=== PATIENT | female | born 1965 | race Caucasian/White ===

== ENCOUNTER 2017-12-07 21:35 | Inpatient (IN) | payer BC, MEDICARE ==
[2017-12-08 00:09] VITALS: BMI 31.8
[2017-12-08] MEDS: HYDROcodone/APAP 5-325MG 1 EACH TAB PO PRN ×4 (01:09→21:21)
[2017-12-08] MEDS: DEXTROSE 5%-0.9% NACL 1,000 ML IV SCH ×2 (01:10→16:24)
[2017-12-08] MEDS: cefTRIAXone IN SWFI 1,000 MG/10 ML SYRINGE IVP SCH (05:41)
[2017-12-08] MEDS: DOXYCYCLINE 100 MG in SODIUM CHLORIDE 0.9% 100 ML IVPB SCH ×2 (08:01→21:21)
[2017-12-08] MEDS: FAMOTIDINE 20 MG TAB PO SCH ×2 (08:01→21:21)
[2017-12-08 08:40] LABS: Anion Gap 10 mmol/L; Blood Urea Nitrogen 8 mg/dL (7-17); Calcium 9.2 mg/dL (8.4-10.2); Carbon Dioxide 27 mmol/L (22-30); Chloride 93 mmol/L (98-107); Glucose 119 mg/dL (74-99); Potassium 4.5 mmol/L (3.5-5.1); Sodium 130 mmol/L (137-145)
[2017-12-08 08:50] LABS: HCT 38.4 % (34.0-46.0); HGB 13.5 gm/dL (11.4-16.0); MCH 32.7 pg (25.0-35.0); MCHC 35.1 g/dL (31.0-37.0); MCV 93.1 fL (80.0-100.0); Mean Platelet Volume 8.1; Platelet Count 116 k/uL (150-450); RBC 4.12 m/uL (3.80-5.40); RDW 12.9 % (11.5-15.5); WBC 10.1 k/uL (3.8-10.6)
[2017-12-08 10:00] LABS: Band Neutrophils % 1 %; Lymphocytes # (M) 2.42 k/uL (1.0-4.8); Monocytes # (M) 0.81 k/uL (0-1.0); Myelocytes % 2 %; Neutrophils % (M) 65 %; Nucleated Red Blood Cells 0 /100 WBC (0-0); Total Cells Counted 200
[2017-12-08] MEDS: HEPARIN SODIUM,PORCINE 5,000 UNIT/ML 1 ML VIAL SQ SCH ×2 (11:04→21:21)
[2017-12-08] MEDS: MORPHINE SULFATE 2 MG/ML SYRINGE IVP PRN ×3 (12:21→21:23)
--- NOTE | 2017-12-08 15:43 | P.CNPUL ---
History of Present Illness Consult date: 12/08/17 Reason for consult: lung mass History of present illness: This is a 52-year-old female patient, a previous smoker, who has been smoking smoking for almost 30 years, and quit smoking approximately 10 months ago. Following her smoking cessation, the patient experienced increased cough and congestion and she was also noting some worsening shortness of breath especially with exertion. At the same time the patient started having increased cough and chest discomfort and pain which was essentially muscular skeletal in nature across her left lower chest area. The pain was more so laterally with movement and coughing. She also is given some pain in her back radiating to her lower extremity on the right and she was getting quite uncomfortable. For all this reasons, she presented [facility] and as part of workup a CAT scan of the chest was done that showed an abnormal findings with the patient was found to have right paratracheal lymphadenopathy, bulky in addition to a right hilar mass and some infiltration of the right lung base with a masslike lesion in the peripheral right lung suggestive of underlying malignancy. The CAT scan of the head and neck came back within normal limits. The CAT scan of the lumbosacral spine showed some degenerative disc disease involving the L 5 S1 region yet there is no canal stenosis or compression. No evidence of any metastatic skeletal abnormalities involving the lumbosacral spine. Based on all this, the patient was referred and transferred to [facility] and of concern is her lung mass and possibility of underlying malignancy. No hemoptysis. The patient denies having any weight loss. She is obese and she has anatomic features to suggest obstructive sleep apnea the patient has a small chin and short neck with significant crowding of posterior pharynx. At this point in time, she is on a combination of Rocephin and Zithromax as an embolic antibiotic coverage. No history of any DVTs or pulmonary embolism. No cardiac history. No other medical problems and the patient does not have any primary care physician and she does not have routine health maintenance in follow-up. She is on oxygen. She does not use any inhalers or respiratory medications outpatient basis. She has history of bipolar disorder, hypertension and [id number] smoking history. She has history of IBS and acid reflux. Review of Systems Constitutional: Reports fatigue Eyes: denies blurred vision, denies bulging eye, denies decreased vision Ears: deny: decreased hearing, ear discharge, earache Cardiovascular: Reports dyspnea on exertion, Reports shortness of breath Respiratory: Reports dyspnea Genitourinary: Denies dysuria, Denies hematuria Menstruation: Reports as per HPI Musculoskeletal: Reports low back pain Musculoskeletal: absent: ankle pain, ankle stiffness, ankle swelling Integumentary: Denies pruritus, Denies rash Neurological: Reports migraines Psychiatric: Denies anxiety, Denies depression Endocrine: Reports as per HPI Hematologic/Lymphatic: Reports as per HPI Allergic/Immunologic: Reports as per HPI Past Medical History Past Medical History: No Reported History Additional Past Medical History / Comment(s): Obesity, bipolar disorder, hypertension, acid reflux, smoker, IBS and previous history of pneumonia History of Any Multi-Drug Resistant Organisms: None Reported Past Surgical History: Hysterectomy, Orthopedic Surgery Additional Past Surgical History / Comment(s): R knee ACL repair, cyst removal under tongue, hemorroid surgery Past Anesthesia/Blood Transfusion Reactions: No Reported Reaction Past Psychological History: Anxiety, Bipolar, Depression Smoking Status: Former smoker Past Alcohol Use History: None Reported Additional Past Alcohol Use History / Comment(s): pt states history of alcohol dependence. Occassionally drinks currently Past Drug Use History: None Reported - Past Family History Mother Family Medical History: CVA/TIA, Hypertension, Rheumatoid Arthritis ([place]) Father Family Medical History: Hypertension, Myocardial Infarction ([place]), Rheumatoid Arthritis ([place]) Medications and Allergies Home Medications Medication Instructions Recorded Confirmed Type Melatonin 10 mg PO HS 12/08/17 12/08/17 History Allergies Allergy/AdvReac Type Severity Reaction Status Date / Time No Known Allergies Allergy Verified 12/08/17 09:44 Physical Exam Vitals: Vital Signs Temp Pulse Resp BP Pulse Ox 12/08/17 15:00 98.2 F 94 22 195/91 95 12/08/17 06:09 98.0 F 74 16 176/81 96 12/07/17 23:59 98.0 F 72 18 168/92 98 Intake and Output 12/08/17 12/08/17 12/08/17 06:59 14:59 22:59 Intake Total 200 450 Balance 200 450 Intake: Intake, IV Titration 200 450 Amount Dextrose 5%-0.9% NaCl 1, 200 350 000 ml @ 50 mls/hr IV . Q20H [facility] Rx#:[id number] Doxycycline 100 mg In 100 Sodium Chloride 0.9% 100 ml @ 66.67 mls/hr IVPB Q12HR [facility] Rx#:[id number] Other: Voiding Method Toilet Toilet Toilet Weight 78.925 kg Obese, comfortable likely distress. Head exam was generally normal. There was no scleral icterus or corneal arcus. Mucous membranes were moist. Neck was supple and without jugular venous distension, thyromegaly, or carotid bruits. Carotids were easily palpable bilaterally. There was no adenopathy. The patient has micrognathia and significant crowding of the posterior oropharynx with a Mallampati class IV Lung sounds are diminished bilaterally along with some scattered expiratory wheezes heard bilaterally. No crackles. Cardiac exam revealed the PMI to be normally situated and sized. The rhythm was regular and no extrasystoles were noted during several minutes of auscultation. The first and second heart sounds were normal and physiologic splitting of the second heart sound was noted. There were no murmurs, rubs, clicks, or gallops. Abdomen is obese soft nontender all his cannot be accurately palpated. No direct tenderness amount a guarding. Examination of the extremities revealed easily palpable radial, femoral and pedal pulses. There was no cyanosis, clubbing or edema. Examination of the skin revealed no evidence of significant rashes, suspicious appearing nevi or other concerning lesions. Neurologically the patient is awake and alert and the patient has no focal neurological deficit. Results - Laboratory Findings CBC and BMP: 12/08/17 07:14 18 07:14 Abnormal lab findings: Abnormal Labs 12/08/1718 07:14 07:14 Plt Count 116 L Myelocytes # (Manual) 0.20 H Sodium 130 L Chloride 93 L Glucose 119 H - Diagnostic Findings CT scan - chest: image reviewed Assessment and Plan Plan: Assessment 1 right hilar mass with paratracheal lymphadenopathy, highly suggestive underlying primary bronchogenic carcinoma, currently under investigation the patient will need further bronchoscopy and airway inspection and biopsies. 2 obesity 3 [id number] smoking history 4 shortness of breath, exertional likely underlying COPD and addition 5 hypertension 6 IBS 7 chronic back pain with gentle disc disease Plan Patient will need a bronchoscopy. I explained the procedure to the patient length. This procedure will be done and operating room. We'll start with conscious sedation and will consider the vagina anesthesia underwent intubation if the patient hyperventilates and/or develops any apneic episodes while under conscious sedation. The procedure will involve airway inspection, transbronchial biopsies and possibly transbronchial needle aspirate of the right paratracheal lymph node. We'll continue to follow. High suspicion for malignancy. No cough or pain control. Heparin subcu for DVT prophylaxis.
[2017-12-08] MEDS ORDERED: METOPROLOL TARTRATE 25 MG TAB PO STA (15:53)
[2017-12-08] MEDS: IBUPROFEN 600 MG TAB PO SCH ×2 (16:23→22:46)
[2017-12-08] MEDS ORDERED: CYCLOBENZAPRINE 5 MG TAB PO PRN (19:36)
[2017-12-08] MEDS: hydrALAZINE HCL 25 MG TAB PO PRN (21:23)
[2017-12-08] MEDS: CYCLOBENZAPRINE 10 MG TAB PO PRN (21:23)
--- NOTE | 2017-12-08 22:30 | P.HPIM ---
History of Present Illness H&P Date: 12/08/17 Chief Complaint: Shortness of breath Patient is a 52-year-old female with significant past medical history for smoking for 30 years initially presented to [facility] with increased shortness of breath cough and congestion. Patient is also having chest pain and back pain. Patient does have history of chronic back pain and takes Motrin at home. Patient back and has been getting worse with coughing. Sometimes the pain radiates down the legs. Patient says that she quit smoking about 10 months ago. Patient had workup including CT chest, CT lumbar-sacral spine and CT head was done. CT of the head showed no acute process CT chest showed 5.9 cm right hilar mass and 2.8 cm paratracheal lymph node enlargement. CT of the lumbosacral spine showed wide based disc prolapse at L5-S1 and L4-L5 with Stenosis. No Chronic Compression Was Noted. Patient Was Subsequently Transferred to [facility] for further by pulmonary and possible biopsy. Patient is also being treated for pneumonia likely post obstructive with ceftriaxone and doxycycline. Otherwise patient does not have any other medical problems and is not on follow- up with primary care physician and regular basis. Review of Systems Constitutional: Patient denies any fever or chills . No generalized weakness or weight loss. Abdomen: Patient denied nausea vomiting and diarrhea and abdominal pain. Cardiovascular: Patient denies any chest pain or short of breath no palpitations. Respiratory: Patient does have cough congestion and shortness of breath Neurologic: Patient denied any numbness or tingling headache. Musculoskeletal: Patient does have lower back pain. Otherwise no joint swelling or deformity Skin: Negative Psychiatric: Negative Endocrine: No heat or cold intolerance. No recent weight gain. Genitourinary: No dysuria or hematuria. All other 14 point ROS negative except the above Past Medical History Past Medical History: No Reported History History of Any Multi-Drug Resistant Organisms: None Reported Past Surgical History: Hysterectomy, Orthopedic Surgery Additional Past Surgical History / Comment(s): R knee ACL repair, cyst removal under tongue, hemorroid surgery Past Anesthesia/Blood Transfusion Reactions: No Reported Reaction Past Psychological History: Anxiety, Bipolar, Depression Smoking Status: Former smoker Past Alcohol Use History: None Reported Additional Past Alcohol Use History / Comment(s): pt states history of alcohol dependence. Occassionally drinks currently Past Drug Use History: None Reported - Past Family History Mother Family Medical History: CVA/TIA, Hypertension, Rheumatoid Arthritis ([place]) Father Family Medical History: Hypertension, Myocardial Infarction ([place]), Rheumatoid Arthritis ([place]) Medications and Allergies Home Medications Medication Instructions Recorded Confirmed Type Melatonin 10 mg PO HS 12/08/17 12/08/17 History Allergies Allergy/AdvReac Type Severity Reaction Status Date / Time No Known Allergies Allergy Verified 12/08/17 09:44 Physical Exam Vitals: Vital Signs Temp Pulse Resp BP Pulse Ox 12/08/17 06:09 98.0 F 74 16 176/81 96 12/07/17 23:59 98.0 F 72 18 168/92 98 Intake and Output 12/07/17 12/08/17 12/08/17 22:59 06:59 14:59 Intake Total 200 Balance 200 Intake: Intake, IV Titration 200 Amount Dextrose 5%-0.9% NaCl 1, 200 000 ml @ 50 mls/hr IV . Q20H [facility] Rx#:[id number] Other: Voiding Method Toilet Toilet Weight 78.925 kg PHYSICAL EXAMINATION: Patient is lying in the bed comfortably, no acute distress, awake alert and oriented.. HEENT: Normocephalic. Neck is supple. Pupils reactive. Nostrils clear. Oral cavity is moist. Ears reveal no drainage. Neck reveals no JVD, carotid bruits, or thyromegaly. CHEST EXAMINATION: Trachea is central. Symmetrical expansion. Right basilar crackles and diminished breath sounds. No wheezing. All other Lung peguero clear to auscultation and percussion. CARDIAC: Normal S1, S2 with no gallops. No murmurs ABDOMEN: Soft. Bowel sounds normal. No organomegaly. No abdominal bruits. Extremities: reveal no edema. No clubbing or cyanosis Neurologically awake, alert, oriented x3 with well-coordinated movements. No focal deficits noted Skin: No rash or skin lesions. Psychiatric: Coperative. Nonsuicidal Musculoskeletal: No joint swelling or deformity. Normal range of motion. Results CBC & Chem 7: 12/08/17 07:14 12/08/17 07:14 Labs: Abnormal Lab Results - Last 24 Hours (Table) 12/08/17 12/08/17 Range/Units 07:14 07:14 Plt Count 116 L (150-450) k/uL Myelocytes # (Manual) 0.20 H (0) k/uL Sodium 130 L (137-145) mmol/L Chloride 93 L (98-107) mmol/L Glucose 119 H (74-99) mg/dL Thrombosis Risk Factor Assmnt - DVT/VTE Prophylaxis DVT/VTE Prophylaxis: Pharmacologic Prophylaxis ordered - Choose All That Apply Any of the Below Risk Factors Present?: Yes Each Factor Represents 1 point: Age 41-60 years, Obesity (BMI >25), Serious lung disease incl. pneumonia (< 1month) Other Risk Factors: No Other congenital or acquired thrombophilia - If yes, enter type in comment: No Thrombosis Risk Factor Assessment Total Risk Factor Score: 3 Thrombosis Risk Factor Assessment Level: Moderate Risk Assessment and Plan Assessment: Right perihilar mass with paratracheal lymphadenopathy. 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 Pulmonary is planning for bronchoscopy tomorrow. Possible pneumonia. Empiric antibiotics in the form of ceftriaxone and doxycycline Hyponatremia 30 pack years of smoking Obesity with BMI 31.8 History of bipolar disorder Hypertension. Currently not taking any medications IBS Chronic back pain with degenerative disc disease at L5-S1 and L4-L5 with broad based disc bulging DVT prophylaxis Plan: Patient will be continued on antibiotics and breathing treatments. Continue the pain management with morphine and Motrin when necessary. Pulmonary is planning for bronchoscopy tomorrow. Continue the pain management and further recommendations based on the clinical course. Prognosis is guarded. Time with Patient: Greater than 30
[2017-12-08] MEDS: METOPROLOL TARTRATE 25 MG TAB PO SCH (22:47)
[2017-12-08] MEDS ORDERED: MORPHINE SULFATE 2 MG/ML SYRINGE IVP STA (23:15)
[2017-12-08] MEDS: amLODIPine 10 MG TAB PO SCH (23:30)
[2017-12-09] MEDS: LORazepam 1 MG TAB PO PRN (01:20)
[2017-12-09] MEDS: MELATONIN 3 MG TABLET PO PRN (03:49)
[2017-12-09] MEDS: cefTRIAXone IN SWFI 1,000 MG/10 ML SYRINGE IVP SCH (06:07)
[2017-12-09 07:34] LABS: INR 1.1 (<1.2); Prothrombin Time 10.7 sec (9.0-12.0)
[2017-12-09] MEDS: DOXYCYCLINE 100 MG in SODIUM CHLORIDE 0.9% 100 ML IVPB SCH ×2 (07:55→21:20)
[2017-12-09] MEDS: FAMOTIDINE 20 MG TAB PO SCH ×2 (07:55→21:20)
[2017-12-09] MEDS: amLODIPine 10 MG TAB PO SCH (07:55)
[2017-12-09] MEDS: METOPROLOL TARTRATE 25 MG TAB PO SCH ×2 (07:55→21:20)
[2017-12-09] MEDS: IBUPROFEN 600 MG TAB PO SCH ×3 (07:56→21:22)
[2017-12-09] MEDS: HEPARIN SODIUM,PORCINE 5,000 UNIT/ML 1 ML VIAL SQ SCH ×2 (07:56→21:20)
[2017-12-09] MEDS: DEXTROSE 5%-0.9% NACL 1,000 ML IV SCH ×2 (07:57→18:20)
[2017-12-09] MEDS: HYDROcodone/APAP 5-325MG 1 EACH TAB PO PRN ×2 (08:00→18:19)
[2017-12-09] MEDS: MORPHINE SULFATE 2 MG/ML SYRINGE IVP PRN (09:03)
[2017-12-09] MEDS ORDERED: IV FLUID CONTINUATION 800 ML IV ONE (11:12)
[2017-12-09] MEDS ORDERED: ONDANSETRON 4 MG/2 ML VIAL ONE (11:42)
[2017-12-09] MEDS ORDERED: DEXAMETHASONE SOD PHOSPHATE 10 MG/ML 1 ML VIAL IV ONE (11:45)
[2017-12-09] MEDS ORDERED: ONDANSETRON 4 MG/2 ML VIAL IVP ONE (11:45)
[2017-12-09] MEDS ORDERED: LACTATED RINGERS 1,000 ML IV ONE (12:47)
[2017-12-09] MEDS ORDERED: fentaNYL (PF) 50 MCG/ML 2 ML AMP ONE ×2 (12:50)
[2017-12-09] MEDS ORDERED: SUCCINYLCHOLINE CHLORIDE 100 MG/5 ML SYR IV ONE ×2 (12:50)
[2017-12-09] MEDS ORDERED: MIDAZOLAM 2 MG/2 ML VIAL ONE ×2 (12:50)
[2017-12-09] MEDS ORDERED: LIDOCAINE 1% INJ 10MG/ML (20 ML MDV) ONE ×2 (12:50)
[2017-12-09] MEDS ORDERED: KETAMINE 10 MG/ML 20 ML VIAL ONE ×2 (12:50)
[2017-12-09] MEDS ORDERED: PROPOFOL 10 MG/ML 20 ML VIAL IV ONE ×2 (12:50)
[2017-12-09] MEDS ORDERED: LIDOCAINE 2% INJ 20 MG/ML INTRATRACH ONE (13:08)
--- NOTE | 2017-12-09 13:54 | P.PN ---
Subjective Progress Note Date: 12/09/17 On today's evaluation of 12/09/2017, the patient was seen in the preoperative room. The plan is to proceed with bronchoscopy and obtain biopsies of the findings and possibly perform transbronchial needle aspirate of the right paratracheal lymph node. This will be decided at a time of the bronchoscopy. The patient understands the procedure. The procedure will be done in the operating room. We'll start is conscious sedation and if unable to complete due to pulmonary insufficiency/obstructive sleep apnea, would proceed with intubation and performing the patient under general anesthesia. The patient is agreeable to that approach. No hemoptysis. No chest pain. No shortness of breath. No altered mentation. No other complaints otherwise for now. Objective - Vital Signs Vital signs: Vital Signs Temp 98.0 F 12/09/17 11:18 Pulse 66 12/09/17 11:18 Resp 16 12/09/17 11:18 BP 174/82 12/09/17 11:18 Pulse Ox 94 L 12/09/17 11:18 Intake & Output 12/08/17 12/09/17 12/09/17 18:59 06:59 18:59 Intake Total 450 650 150 Balance 450 650 150 Weight 78.925 kg Intake: IV 150 Intake, IV Titration 450 650 Amount Dextrose 5%-0.9% NaCl 1, 350 550 000 ml @ 50 mls/hr IV . Q20H [facility] Rx#:[id number] Doxycycline 100 mg In 100 100 Sodium Chloride 0.9% 100 ml @ 66.67 mls/hr IVPB Q12HR [facility] Rx#:[id number] Other: Voiding Method Toilet Toilet Toilet # Voids 1 - Exam Obese, comfortable likely distress. Head exam was generally normal. There was no scleral icterus or corneal arcus. Mucous membranes were moist. Neck was supple and without jugular venous distension, thyromegaly, or carotid bruits. Carotids were easily palpable bilaterally. There was no adenopathy. The patient has micrognathia and significant crowding of the posterior oropharynx with a Mallampati class IV Lung sounds are diminished bilaterally along with some scattered expiratory wheezes heard bilaterally. No crackles. Cardiac exam revealed the PMI to be normally situated and sized. The rhythm was regular and no extrasystoles were noted during several minutes of auscultation. The first and second heart sounds were normal and physiologic splitting of the second heart sound was noted. There were no murmurs, rubs, clicks, or gallops. Abdomen is obese soft nontender all his cannot be accurately palpated. No direct tenderness amount a guarding. Examination of the extremities revealed easily palpable radial, femoral and pedal pulses. There was no cyanosis, clubbing or edema. Examination of the skin revealed no evidence of significant rashes, suspicious appearing nevi or other concerning lesions. Neurologically the patient is awake and alert and the patient has no focal neurological deficit. - Labs CBC & Chem 7: 12/08/17 07:14 12/08/17 07:14 Assessment and Plan Plan: Assessment 1 right hilar mass with paratracheal lymphadenopathy, highly suggestive underlying primary bronchogenic carcinoma, currently under investigation the patient will need further bronchoscopy and airway inspection and biopsies. 2 obesity 3 [id number] smoking history 4 shortness of breath, exertional likely underlying COPD and addition 5 hypertension 6 IBS 7 chronic back pain with gentle disc disease Plan Patient will need a bronchoscopy. I explained the procedure to the patient length. Strongly suspected malignancy/cancer.
--- NOTE | 2017-12-09 14:04 | P.PCN ---
Date of Procedure: 12/09/17 Preoperative Diagnosis: Right lung mass Postoperative Diagnosis: 1 endobronchial tumor within the right middle lobe bronchus causing 50% narrowing of the distal right middle lobe bronchus 2 endobronchial tumor occupying the sputum segment of the right lower lobe causing 50% narrowing 3 mass effect at the level of the secondary trachea, right upper lobe with some endobronchial irregularities. Procedure(s) Performed: Flexible bronchoscopy, endobronchial biopsy of the right middle lobe and the right lower lobe, endobronchial fine-needle aspirate of the right middle lobe and the right lower lobe, bronchioloalveolar lavage of the right middle lobe, endobronchial brushings of the right middle lobe. Anesthesia: ROZ ERVIN Surgeon: Kylie Lundy Director Global Sales #1: Ana Vitale Estimated Blood Loss (ml): 5 Pathology: other Condition: stable Disposition: floor Indications for Procedure: Right hilar mass Description of Procedure: This procedure was done in the operating room. The patient was brought in. The patient was aware of the details of the procedure. Timeout was obtained. Following that the patient was given conscious sedation however it immediately became clear that the patient was having extensive prolonged apneic episodes where she was desaturating her pulse ox was dropping the low 80s. At that point we decided to proceed with intubation and mechanical ventilation the procedure was completed under general anesthesia. The patient was intubated by FIRE COORDINATOR using the glydoscope and the patient was intubated by #8 orotracheal tube. While the patient being oxygenated and adequately ventilated, and adapter was attached orotracheal tube and following that the bronchoscope was advanced through the orotracheal tube and an airway inspection was completed. She was seen around 3 cm above the jessica. The distal trachea and the main jessica was sharp and in the midline. Right mainstem bronchus was within normal limits. At this level of the secondary jessica between the bronchus intermedius and the right upper lobe bronchus, there was some swelling, irregularities mucosally and probably some early mass effect. The various segments of the right upper lobe was easily visualized. The bronchoscope was then moved to the bronchus intermedius and then to the right middle lobe bronchus. There was endobronchial abnormalities within the right middle lobe bronchus and along with endobronchial involvement there was a mass effect which was reducing the caliber of the right middle lobe bronchus by around 50% especially from its lateral wall. The medial and lateral segments were visualized however the lateral segment was quite extensively narrowed. Bronchoscope was then moved to the right lower lobe and this appears segment was involved by endobronchial tumor causing 50% narrowing of the involved segment. The medial basilar segment and anterior and the lateral and the posterior segments were all patent and within normal limits. The bronchoscope was then moved to the left side and examination of the left side including left upper lobe bronchus, lingular segment, left lower lobe bronchus and all of these airways were patent and within normal limits At this point the rhonchus, was then the moved to the right side and using a 19- gauge 1 needle, transbronchial needle aspirate of the endobronchial irregularities and abnormalities noted right middle lobe and the right lower lobe was done. 2 passes were obtained and the right middle lobe and 2 passes from this. Segment of the right lower lobe. Following that, I performed endobronchial biopsies of the right middle lobe and's appears segment of the right lower lobe. Endobronchial brushings of the right middle lobe was done. Bronchioloalveolar lavage of the right middle lobe was done with a total of 80 mL of fluid was aspirated and around 25 mL was suctioned back. Adequate samples were obtained and the patient rated the procedure well. Bronchoscope was removed and the patient was extubated and transferred to recovery in stable condition. A chest x-ray will be done following the completion of the procedure.
--- NOTE | 2017-12-09 14:39 | XR ---
EXAMINATION TYPE: XR chest 1V DATE OF EXAM: 12/09/2017 COMPARISON: NONE HISTORY: Post bronchoscopy. TECHNIQUE: Single frontal view of the chest is obtained. FINDINGS: Right-sided visceral pleural line is seen with 8mm thickness with opacity peripherally and additional right basilar density extending to the minor fissure likely related to pleural effusion. Mild interstitial pulmonary vascular congestion, most pronounced centrally is seen. Patient's chin ob scures the lung apices. No sizable left pleural effusion. Cardiac silhouette is partially obscured bu t appears enlarged. Osseous structures are intact. IMPRESSION: Moderate right pleural effusion seen extending to the right lung apex with right basilar consolidation also likely related to pleural fluid and atelectasis. Continued follow-up is recommend ed to ensure no hemopneumothorax status post bronchoscopy.
[2017-12-09] MEDS: IPRATROPIUM-ALBUTEROL 3 ML NEB INHALATION PRN (22:49)
--- NOTE | 2017-12-09 22:56 | P.PN ---
Subjective Progress Note Date: 12/09/17 Principal diagnosis: Lung mass and pneumonia Patient is a 52-year-old female with significant past medical history for smoking for 30 years initially presented to [facility] with increased shortness of breath cough and congestion. Patient is also having chest pain and back pain. Patient does have history of chronic back pain and takes Motrin at home. Patient back and has been getting worse with coughing. Sometimes the pain radiates down the legs. Patient says that she quit smoking about 10 months ago. Patient had workup including CT chest, CT lumbar-sacral spine and CT head was done. CT of the head showed no acute process CT chest showed 5.9 cm right hilar mass and 2.8 cm paratracheal lymph node enlargement. CT of the lumbosacral spine showed wide based disc prolapse at L5-S1 and L4-L5 with Stenosis. No Chronic Compression Was Noted. Patient Was Subsequently Transferred to [facility] for further by pulmonary and possible biopsy. Patient is also being treated for pneumonia likely post obstructive with ceftriaxone and doxycycline. Otherwise patient does not have any other medical problems and is not on follow- up with primary care physician and regular basis. 12/09/2017 Patient denied any complaints of chest pain or shortness of breath. Lower back pain is improving otherwise. No fever no chills. Patient is being continued on antibiotics and patient underwent flexible bronchoscopy today. Postprocedure diagnosis 1 endobronchial tumor within the right middle lobe bronchus causing 50% narrowing of the distal right middle lobe bronchus 2 endobronchial tumor occupying the sputum segment of the right lower lobe causing 50% narrowing 3 mass effect at the level of the secondary trachea, right upper lobe with some endobronchial irregularities. We will await pathology report. Pulmonary is following. All other review of systems negative except the above Current medications reviewed Objective - Vital Signs Vital signs: Vital Signs Temp 98.3 F 12/09/17 22:37 Pulse 92 12/09/17 22:37 Resp 18 12/09/17 22:37 BP 162/92 12/09/17 22:37 Pulse Ox 93 L 12/09/17 15:09 Intake & Output 12/09/17 12/09/17 12/10/17 06:59 18:59 06:59 Intake Total 650 150 200 Balance 650 150 200 Weight 78.925 kg Intake: IV 150 200 Dextrose 5%-0.9% NaCl 1, 200 000 ml @ 50 mls/hr IV . Q20H [facility] Rx#:[id number] Intake, IV Titration 650 Amount Dextrose 5%-0.9% NaCl 1, 550 000 ml @ 50 mls/hr IV . Q20H [facility] Rx#:[id number] Doxycycline 100 mg In 100 Sodium Chloride 0.9% 100 ml @ 66.67 mls/hr IVPB Q12HR [facility] Rx#:[id number] Other: Voiding Method Toilet Toilet Toilet # Voids 1 1 - Exam PHYSICAL EXAMINATION: Patient is lying in the bed comfortably, no acute distress, awake alert and oriented.. HEENT: Normocephalic. Neck is supple. Pupils reactive. Nostrils clear. Oral cavity is moist. Ears reveal no drainage. Neck reveals no JVD, carotid bruits, or thyromegaly. CHEST EXAMINATION: Trachea is central. Symmetrical expansion. Right base/ diminished air entry. Lung peguero clear to auscultation and percussion. CARDIAC: Normal S1, S2 with no gallops. No murmurs ABDOMEN: Soft. Bowel sounds normal. No organomegaly. No abdominal bruits. Extremities: reveal no edema. No clubbing or cyanosis Neurologically awake, alert, oriented x3 with well-coordinated movements. No focal deficits noted Skin: No rash or skin lesions. Psychiatric: Coperative. Nonsuicidal Musculoskeletal: No joint swelling or deformity. Normal range of motion. - Labs CBC & Chem 7: 12/08/17 07:14 12/08/17 07:14 Labs: Microbiology - Last 24 Hours (Table) 12/09/17 13:10 Bronchial Washings Culture - Preliminary Bronchoalviolar Lavage - Right 12/09/17 13:10 Fungal Culture - Preliminary Bronchoalviolar Lavage - Right 12/09/17 13:10 Acid Fast Bacilli Culture - Preliminary Bronchoalviolar Lavage - Right Assessment and Plan Assessment: Right perihilar mass with paratracheal lymphadenopathy. 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 Status post bronchoscopy on 12/09/2017. Possible pneumonia. Empiric antibiotics in the form of ceftriaxone and doxycycline Hyponatremia 30 pack years of smoking Obesity with BMI 31.8 History of bipolar disorder Hypertension. Currently not taking any medications IBS Chronic back pain with degenerative disc disease at L5-S1 and L4-L5 with broad based disc bulging DVT prophylaxis Plan: Patient will be continued on antibiotics and breathing treatments. Continue the pain management with morphine and Motrin when necessary. Follow up biopsy report.. Continue the pain management and further recommendations based on the clinical course. Prognosis is guarded.
[2017-12-10] MEDS: cefTRIAXone IN SWFI 1,000 MG/10 ML SYRINGE IVP SCH (05:58)
[2017-12-10] MEDS: CYCLOBENZAPRINE 10 MG TAB PO PRN (06:33)
[2017-12-10 07:48] LABS: Anion Gap 14 mmol/L; Blood Urea Nitrogen 7 mg/dL (7-17); Calcium 9.3 mg/dL (8.4-10.2); Carbon Dioxide 28 mmol/L (22-30); Chloride 91 mmol/L (98-107); Glucose 108 mg/dL (74-99); Potassium 4.2 mmol/L (3.5-5.1); Sodium 133 mmol/L (137-145)
[2017-12-10] MEDS: IPRATROPIUM-ALBUTEROL 3 ML NEB INHALATION PRN ×3 (07:52→20:07)
[2017-12-10] MEDS: FAMOTIDINE 20 MG TAB PO SCH ×2 (08:49→21:40)
[2017-12-10] MEDS: METOPROLOL TARTRATE 25 MG TAB PO SCH ×2 (08:50→21:41)
[2017-12-10] MEDS: HYDROcodone/APAP 5-325MG 1 EACH TAB PO PRN ×2 (08:50→19:45)
[2017-12-10] MEDS: amLODIPine 10 MG TAB PO SCH (08:50)
[2017-12-10] MEDS: DOXYCYCLINE 100 MG in SODIUM CHLORIDE 0.9% 100 ML IVPB SCH ×2 (08:51→21:40)
[2017-12-10] MEDS: HEPARIN SODIUM,PORCINE 5,000 UNIT/ML 1 ML VIAL SQ SCH ×3 (08:51→21:41)
[2017-12-10] MEDS: IBUPROFEN 600 MG TAB PO SCH ×3 (10:10→21:41)
[2017-12-10] MEDS: MORPHINE SULFATE 2 MG/ML SYRINGE IVP PRN ×3 (11:36→22:42)
[2017-12-10] MEDS: methylPREDNISolone SOD SUCCI 125 MG/2 ML VIAL IV SCH ×2 (15:02→17:23)
--- NOTE | 2017-12-10 15:23 | P.PN ---
Subjective Progress Note Date: 12/10/17 On today's evaluation, the patient's main complaint is back pain radiating to the right lower extremity. The CAT scan of the lumbosacral spine showed L5-S1 disease with disc bulge and the patient may experiencing some sciatica. No evidence of any metastatic involvement or compression fractures or cord pathology based on the CAT scan of the lumbosacral spine. Meanwhile, the patient underwent her bronchoscopy. Endobronchial abnormalities were noted in the right middle lobe and superior segment of the right lower lobe and biopsies were obtained. Results are still pending for now. Almost has a stable. Minimal amount of bloody respiratory secretions related to the procedure and the biopsies. She is taking [place] for pain control. She was also started on a combination of bronchodilators and systemic steroids regarding her COPD. Objective - Vital Signs Vital signs: Vital Signs Temp 98.0 F 12/10/17 05:00 Pulse 92 12/10/17 08:03 Resp 16 12/10/17 05:00 BP 173/83 12/10/17 05:00 Pulse Ox 94 L 12/10/17 07:55 Intake & Output 12/09/17 12/10/17 12/10/17 18:59 06:59 18:59 Intake Total 150 600 Balance 150 600 Intake: IV 150 600 Dextrose 5%-0.9% NaCl 1, 600 000 ml @ 50 mls/hr IV . [facility]H [facility] Rx#:[id number] Other: Voiding Method Toilet Toilet Toilet # Voids 1 1 - Exam Obese, comfortable likely distress. Head exam was generally normal. There was no scleral icterus or corneal arcus. Mucous membranes were moist. Neck was supple and without jugular venous distension, thyromegaly, or carotid bruits. Carotids were easily palpable bilaterally. There was no adenopathy. The patient has micrognathia and significant crowding of the posterior oropharynx with a Mallampati class IV Lung sounds are diminished bilaterally along with some scattered expiratory wheezes heard bilaterally. No crackles. Cardiac exam revealed the PMI to be normally situated and sized. The rhythm was regular and no extrasystoles were noted during several minutes of auscultation. The first and second heart sounds were normal and physiologic splitting of the second heart sound was noted. There were no murmurs, rubs, clicks, or gallops. Abdomen is obese soft nontender all his cannot be accurately palpated. No direct tenderness amount a guarding. Examination of the extremities revealed easily palpable radial, femoral and pedal pulses. There was no cyanosis, clubbing or edema. Examination of the skin revealed no evidence of significant rashes, suspicious appearing nevi or other concerning lesions. Neurologically the patient is awake and alert and the patient has no focal neurological deficit. - Labs CBC & Chem 7: 12/08/17 07:14 12/10/17 06:51 Labs: Abnormal Lab Results - Last 24 Hours (Table) 12/10/17 Range/Units 06:51 Sodium 133 L (137-145) mmol/L Chloride 91 L (98-107) mmol/L Creatinine 0.47 L (0.52-1.04) mg/dL Glucose 108 H (74-99) mg/dL Microbiology - Last 24 Hours (Table) 12/09/17 13:10 Gram Stain - Preliminary Bronchoalviolar Lavage - Right Bronchial Washings Culture - Preliminary 12/09/17 13:10 Acid Fast Bacilli Smear - Final Bronchoalviolar Lavage - Right Acid Fast Bacilli Culture - Preliminary 12/09/17 13:10 Fungal Culture - Preliminary Bronchoalviolar Lavage - Right Assessment and Plan Plan: Assessment 1 right hilar mass with paratracheal lymphadenopathy, highly suggestive underlying primary bronchogenic carcinoma,. He is referred to the bronchoscopic results and findings. The biopsy results are still pending at that is a high suspicion for bronchogenic carcinoma of the lung. 2 obesity 3 [id number] smoking history 4 shortness of breath, exertional likely underlying COPD and addition 5 hypertension 6 IBS 7 chronic back pain with lumbar disc disease 8 COPD Plan we will be awaiting the results and transbronchial biopsy. Continue pain control. Most of COPD. May need a consultation with Dr. Rodriguez regarding her chronic back pain and this disease.
[2017-12-10] MEDS: DEXTROSE 5%-0.9% NACL 1,000 ML IV SCH (17:23)
[2017-12-10] MEDS: POLYETHYLENE GLYCOL 3350 17 GM POWD.PACK PO SCH (22:36)
--- NOTE | 2017-12-11 00:02 | P.PN ---
Subjective Progress Note Date: 12/10/17 Principal diagnosis: Lung mass and pneumonia Patient is a 52-year-old female with significant past medical history for smoking for 30 years initially presented to [facility] with increased shortness of breath cough and congestion. Patient is also having chest pain and back pain. Patient does have history of chronic back pain and takes Motrin at home. Patient back and has been getting worse with coughing. Sometimes the pain radiates down the legs. Patient says that she quit smoking about 10 months ago. Patient had workup including CT chest, CT lumbar-sacral spine and CT head was done. CT of the head showed no acute process CT chest showed 5.9 cm right hilar mass and 2.8 cm paratracheal lymph node enlargement. CT of the lumbosacral spine showed wide based disc prolapse at L5-S1 and L4-L5 with Stenosis. No Chronic Compression Was Noted. Patient Was Subsequently Transferred to [facility] for further by pulmonary and possible biopsy. Patient is also being treated for pneumonia likely post obstructive with ceftriaxone and doxycycline. Otherwise patient does not have any other medical problems and is not on follow- up with primary care physician and regular basis. 12/09/2017 Patient denied any complaints of chest pain or shortness of breath. Lower back pain is improving otherwise. No fever no chills. Patient is being continued on antibiotics and patient underwent flexible bronchoscopy today. Postprocedure diagnosis 1 endobronchial tumor within the right middle lobe bronchus causing 50% narrowing of the distal right middle lobe bronchus 2 endobronchial tumor occupying the sputum segment of the right lower lobe causing 50% narrowing 3 mass effect at the level of the secondary trachea, right upper lobe with some endobronchial irregularities. 12/10/2017 Patient denied any chest pain or shortness of breath. Awaiting biopsy report. Otherwise patient is complaining of increased back pain today. Patient will be continued on current pain management and steroid be added. Orthopedic surgery was consulted. We will await pathology report. Pulmonary is following. All other review of systems negative except the above Current medications reviewed Objective - Vital Signs Vital signs: Vital Signs Temp 98.1 F 12/10/17 15:20 Pulse 96 12/10/17 20:07 Resp 20 12/10/17 15:20 BP 178/83 12/10/17 15:20 Pulse Ox 95 12/10/17 15:20 Intake & Output 12/10/17 12/10/17 12/11/17 06:59 18:59 06:59 Intake Total 600 Balance 600 Intake: IV 600 Dextrose 5%-0.9% NaCl 1, 600 000 ml @ 50 mls/hr IV . Q20H [facility] Rx#:[id number] Other: Voiding Method Toilet Toilet Toilet # Voids 1 2 - Exam PHYSICAL EXAMINATION: Patient is lying in the bed comfortably, no acute distress, awake alert and oriented.. HEENT: Normocephalic. Neck is supple. Pupils reactive. Nostrils clear. Oral cavity is moist. Ears reveal no drainage. Neck reveals no JVD, carotid bruits, or thyromegaly. CHEST EXAMINATION: Trachea is central. Symmetrical expansion. Right base/ diminished air entry. Lung peguero clear to auscultation and percussion. CARDIAC: Normal S1, S2 with no gallops. No murmurs ABDOMEN: Soft. Bowel sounds normal. No organomegaly. No abdominal bruits. Extremities: reveal no edema. No clubbing or cyanosis Neurologically awake, alert, oriented x3 with well-coordinated movements. No focal deficits noted Skin: No rash or skin lesions. Psychiatric: Coperative. Nonsuicidal Musculoskeletal: No joint swelling or deformity. Normal range of motion. - Labs CBC & Chem 7: 12/08/17 07:14 12/10/17 06:51 Labs: Abnormal Lab Results - Last 24 Hours (Table) 12/10/17 Range/Units 06:51 Sodium 133 L (137-145) mmol/L Chloride 91 L (98-107) mmol/L Creatinine 0.47 L (0.52-1.04) mg/dL Glucose 108 H (74-99) mg/dL Microbiology - Last 24 Hours (Table) 12/09/17 13:10 Gram Stain - Preliminary Bronchoalviolar Lavage - Right Bronchial Washings Culture - Preliminary 12/09/17 13:10 Acid Fast Bacilli Smear - Final Bronchoalviolar Lavage - Right Acid Fast Bacilli Culture - Preliminary Assessment and Plan Assessment: Right perihilar mass with paratracheal lymphadenopathy. 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 Status post bronchoscopy on 12/09/2017. Possible pneumonia. Empiric antibiotics in the form of ceftriaxone and doxycycline Acute on Chronic back pain with degenerative disc disease at L5-S1 and L4-L5 with broad based disc bulging Hyponatremia 30 pack years of smoking Obesity with BMI 31.8 History of bipolar disorder Hypertension. Currently not taking any medications IBS DVT prophylaxis Plan: Patient will be continued on antibiotics and breathing treatments. Continue the pain management with morphine and Motrin when necessary. Follow up biopsy report.. Continue the pain management and further recommendations based on the clinical course. Prognosis is guarded. Time with Patient: Greater than 30
[2017-12-11] MEDS: methylPREDNISolone SOD SUCCI 125 MG/2 ML VIAL IV SCH ×3 (01:26→12:41)
[2017-12-11] MEDS: MORPHINE SULFATE 2 MG/ML SYRINGE IVP PRN ×4 (04:12→18:17)
[2017-12-11] MEDS: cefTRIAXone IN SWFI 1,000 MG/10 ML SYRINGE IVP SCH (05:59)
[2017-12-11] MEDS: IPRATROPIUM-ALBUTEROL 3 ML NEB INHALATION PRN ×2 (07:34→16:57)
[2017-12-11] MEDS: amLODIPine 10 MG TAB PO SCH (09:03)
[2017-12-11] MEDS: METOPROLOL TARTRATE 25 MG TAB PO SCH ×2 (09:03→21:02)
[2017-12-11] MEDS: FAMOTIDINE 20 MG TAB PO SCH ×2 (09:03→21:02)
[2017-12-11] MEDS: HEPARIN SODIUM,PORCINE 5,000 UNIT/ML 1 ML VIAL SQ SCH ×2 (09:04→21:02)
[2017-12-11] MEDS: DOXYCYCLINE 100 MG in SODIUM CHLORIDE 0.9% 100 ML IVPB SCH ×2 (09:09→21:01)
[2017-12-11] MEDS: IBUPROFEN 600 MG TAB PO SCH ×3 (09:09→21:03)
--- NOTE | 2017-12-11 11:17 | P.PN ---
Subjective Progress Note Date: 12/11/17 On today's evaluation, the patient's main complaint is back pain radiating to the right lower extremity. The CAT scan of the lumbosacral spine showed L5-S1 disease with disc bulge and the patient may experiencing some sciatica. No evidence of any metastatic involvement or compression fractures or cord pathology based on the CAT scan of the lumbosacral spine. Meanwhile, the patient underwent her bronchoscopy. Endobronchial abnormalities were noted in the right middle lobe and superior segment of the right lower lobe and biopsies were obtained. Results are still pending for now. Almost has a stable. Minimal amount of bloody respiratory secretions related to the procedure and the biopsies. She is taking [place] for pain control. She was also started on a combination of bronchodilators and systemic steroids regarding her COPD. On today's evaluation of 12/11/2017, the patient is improved in terms of her back pain. She was started on steroids yesterday and that helped her with her pain control. She is not having any respiratory difficulties. No cough or sputum production. No hemoptysis. No other complaints otherwise. Biopsies were done and the results are not available at this point in time and this will be discussed at a later stage on outpatient basis. Objective - Vital Signs Vital signs: Vital Signs Temp 97.9 F 12/11/17 07:00 Pulse 88 12/11/17 07:45 Resp 20 12/11/17 07:00 BP 197/78 12/11/17 07:00 Pulse Ox 92 L 12/11/17 07:00 Intake & Output 12/10/17 12/11/17 12/11/17 18:59 06:59 18:59 Intake Total 990 Balance 990 Intake: IV 400 Dextrose 5%-0.9% NaCl 1, 400 000 ml @ 50 mls/hr IV . Q20H [facility] Rx#:[id number] Oral 590 Other: Voiding Method Toilet Toilet Toilet # Voids 2 2 - Exam Obese, comfortable likely distress. Head exam was generally normal. There was no scleral icterus or corneal arcus. Mucous membranes were moist. Neck was supple and without jugular venous distension, thyromegaly, or carotid bruits. Carotids were easily palpable bilaterally. There was no adenopathy. The patient has micrognathia and significant crowding of the posterior oropharynx with a Mallampati class IV Lung sounds are diminished bilaterally along with some scattered expiratory wheezes heard bilaterally. No crackles. Cardiac exam revealed the PMI to be normally situated and sized. The rhythm was regular and no extrasystoles were noted during several minutes of auscultation. The first and second heart sounds were normal and physiologic splitting of the second heart sound was noted. There were no murmurs, rubs, clicks, or gallops. Abdomen is obese soft nontender all his cannot be accurately palpated. No direct tenderness amount a guarding. Examination of the extremities revealed easily palpable radial, femoral and pedal pulses. There was no cyanosis, clubbing or edema. Examination of the skin revealed no evidence of significant rashes, suspicious appearing nevi or other concerning lesions. Neurologically the patient is awake and alert and the patient has no focal neurological deficit. - Labs CBC & Chem 7: 12/08/17 07:14 12/10/17 06:51 Labs: Microbiology - Last 24 Hours (Table) 12/09/17 13:10 Gram Stain - Final Bronchoalviolar Lavage - Right Bronchial Washings Culture - Final Assessment and Plan Plan: Assessment 1 right hilar mass with paratracheal lymphadenopathy, highly suggestive underlying primary bronchogenic carcinoma,. He is referred to the bronchoscopic results and findings. The biopsy results are still pending at that is a high suspicion for bronchogenic carcinoma of the lung. 2 obesity 3 [id number] smoking history 4 shortness of breath, exertional likely underlying COPD and addition 5 hypertension 6 IBS 7 chronic back pain with lumbar disc disease 8 COPD Plan Improved back pain control. Awaiting the results of the lung biopsy. Discharge next 24 hours. Awaiting an orthopedic consultation.
[2017-12-11] MEDS: DOCUSATE 100 MG CAP PO SCH ×2 (12:48→21:02)
--- NOTE | 2017-12-11 13:09 | P.CNOR ---
History of Present Illness - HPI Consult date: 12/11/17 History of present illness: This is a 52-year-old female who is admitted for pneumonia and lung mass. Patient states that 3 weeks ago she developed lower back pain that radiated to the knees. Patient states that she did not have back pain previously. Patient denies any injury or fall. Patient states that when the pain is at its worse she gets cramping in the lower back and legs. Patient also states that the pain radiates to the groin. Patient admits to some tingling of bilateral lower extremities but denies any numbness. Patient states that her symptoms are improving after she received steroids. Patient denies any shortness of breath, chest pain, fever or chills. Review of Systems See HPI. Past Medical History Past Medical History: No Reported History Additional Past Medical History / Comment(s): Obesity, bipolar disorder, hypertension, acid reflux, smoker, IBS and previous history of pneumonia History of Any Multi-Drug Resistant Organisms: None Reported Past Surgical History: Hysterectomy, Orthopedic Surgery Additional Past Surgical History / Comment(s): R knee ACL repair, cyst removal under tongue, hemorroid surgery Past Anesthesia/Blood Transfusion Reactions: No Reported Reaction Past Psychological History: Anxiety, Bipolar, Depression Smoking Status: Former smoker Past Alcohol Use History: None Reported Additional Past Alcohol Use History / Comment(s): pt states history of alcohol dependence. Occassionally drinks currently Past Drug Use History: None Reported - Past Family History Mother Family Medical History: CVA/TIA, Hypertension, Rheumatoid Arthritis (RA) Father Family Medical History: Hypertension, Myocardial Infarction ([place]), Rheumatoid Arthritis (RA) Medications and Allergies Home Medications Medication Instructions Recorded Confirmed Type Melatonin 10 mg PO HS 12/08/17 12/08/17 History Allergies Allergy/AdvReac Type Severity Reaction Status Date / Time No Known Allergies Allergy Verified 12/09/17 11:25 Physical Examination On exam patient is alert and oriented 3 and standing in the room in no acute distress. There is mild tenderness to palpation over the lumbar midline. There is no deformity or step-off. There is no swelling, erythema or ecchymosis. Patient ambulates without pain or difficulty. Patient has full strength of bilateral lower extremities with flexion and extension of the hips, knees, and ankles. Positive straight leg raise bilaterally. Patient has full range of motion of bilateral lower extremities with some pain in the groin with internal and external rotation of the hips. Calves are soft and nontender bilaterally. Sensation is intact to bilateral lower extremities. Patient has full range of motion and full strength of bilateral upper extremities with sensation intact. Neurovascular status and circulatory status are intact. Results CT of the lumbosacral spine from an outside facility shows 1. Mild disc space narrowing at L3-L4 and broad based disc bulge. The central canal and intervertebral foramina are normal. 2. Moderate disc space narrowing and circumferential annular disc bulge at L4- L5. There is no sign of central canal stenosis or nerve root compression. 3. L5-S1 there is a broad-based posterior disc bulge. There is no sign of central canal stenosis. - Labs Labs: Microbiology - Last 24 Hours (Table) 12/09/17 13:10 Gram Stain - Final Bronchoalviolar Lavage - Right Bronchial Washings Culture - Final H & H 12/08/17 Range/Units 07:14 Hgb 13.5 (11.4-16.0) gm/dL Hct 38.4 (34.0-46.0) % Coagulation 12/09/17 Range/Units 07:10 INR 1.1 (<1.2) Result Diagrams: 12/08/17 07:14 12/10/17 06:51 Assessment and Plan (1) Lung mass Current Visit: Yes Status: Acute Code(s): R91.8 - OTHER NONSPECIFIC ABNORMAL FINDING OF LUNG FIELD SNOMED Code(s): 354253415 (2) Pneumonia Current Visit: Yes Status: Acute Code(s): J18.9 - PNEUMONIA, UNSPECIFIED ORGANISM SNOMED Code(s): 832625056 (3) Degenerative disc disease, lumbar Current Visit: Yes Status: Acute Code(s): M51.36 - OTHER INTERVERTEBRAL DISC DEGENERATION, LUMBAR REGION SNOMED Code(s): 67285360 (4) Radiculopathy due to lumbar intervertebral disc disorder Current Visit: Yes Status: Acute Code(s): M51.16 - INTERVERTEBRAL DISC DISORDERS W RADICULOPATHY, LUMBAR REGION SNOMED Code(s): 378190253944225 Plan: #1. CT results are reviewed. Patient's symptoms are improving after steroids. Exam is within normal limits. #2. No surgical intervention planned. #3. Will hold off on further imaging for now as patient's symptoms are improving. Recommend that patient follow up as an outpatient in 2-3 weeks. Will order MRI in 2-3 weeks if symptoms persist or worsen.
--- NOTE | 2017-12-11 13:44 | P.PN ---
Subjective Progress Note Date: 12/11/17 Principal diagnosis: Lung mass and pneumonia Patient is a 52-year-old female with significant past medical history for smoking for 30 years initially presented to [facility] with increased shortness of breath cough and congestion. Patient is also having chest pain and back pain. Patient does have history of chronic back pain and takes Motrin at home. Patient back and has been getting worse with coughing. Sometimes the pain radiates down the legs. Patient says that she quit smoking about 10 months ago. Patient had workup including CT chest, CT lumbar-sacral spine and CT head was done. CT of the head showed no acute process CT chest showed 5.9 cm right hilar mass and 2.8 cm paratracheal lymph node enlargement. CT of the lumbosacral spine showed wide based disc prolapse at L5-S1 and L4-L5 with Stenosis. No Chronic Compression Was Noted. Patient Was Subsequently Transferred to [facility] for further by pulmonary and possible biopsy. Patient is also being treated for pneumonia likely post obstructive with ceftriaxone and doxycycline. Otherwise patient does not have any other medical problems and is not on follow- up with primary care physician and regular basis. 12/09/2017 Patient denied any complaints of chest pain or shortness of breath. Lower back pain is improving otherwise. No fever no chills. Patient is being continued on antibiotics and patient underwent flexible bronchoscopy today. Postprocedure diagnosis 1 endobronchial tumor within the right middle lobe bronchus causing 50% narrowing of the distal right middle lobe bronchus 2 endobronchial tumor occupying the sputum segment of the right lower lobe causing 50% narrowing 3 mass effect at the level of the secondary trachea, right upper lobe with some endobronchial irregularities. 12/10/2017 Patient denied any chest pain or shortness of breath. Awaiting biopsy report. Otherwise patient is complaining of increased back pain today. Patient will be continued on current pain management and steroid be added. Orthopedic surgery was consulted. 12/11/2017 Patient denied any complains of chest pain or shortness of breath. Awaiting pathology report status post bronchoscopy. Otherwise back pain is improving with steroids and orthopedics has seen the patient. Anticipate discharg with improvement in back pain tomorrow. All other review of systems negative except the above Current medications reviewed Objective - Vital Signs Vital signs: Vital Signs Temp 97.9 F 12/11/17 07:00 Pulse 88 12/11/17 11:57 Resp 20 12/11/17 07:00 BP 197/78 12/11/17 07:00 Pulse Ox 92 L 12/11/17 07:00 Intake & Output 12/10/17 12/11/17 12/11/17 18:59 06:59 18:59 Intake Total 990 Balance 990 Intake: IV 400 Dextrose 5%-0.9% NaCl 1, 400 000 ml @ 50 mls/hr IV . Q20H [facility] Rx#:[id number] Oral 590 Other: Voiding Method Toilet Toilet Toilet # Voids 2 2 - Exam PHYSICAL EXAMINATION: Patient is lying in the bed comfortably, no acute distress, awake alert and oriented.. HEENT: Normocephalic. Neck is supple. Pupils reactive. Nostrils clear. Oral cavity is moist. Ears reveal no drainage. Neck reveals no JVD, carotid bruits, or thyromegaly. CHEST EXAMINATION: Trachea is central. Symmetrical expansion. Right base/ diminished air entry. Lung peguero clear to auscultation and percussion. CARDIAC: Normal S1, S2 with no gallops. No murmurs ABDOMEN: Soft. Bowel sounds normal. No organomegaly. No abdominal bruits. Extremities: reveal no edema. No clubbing or cyanosis Neurologically awake, alert, oriented x3 with well-coordinated movements. No focal deficits noted Skin: No rash or skin lesions. Psychiatric: Coperative. Nonsuicidal Musculoskeletal: No joint swelling or deformity. Normal range of motion. - Labs CBC & Chem 7: 12/08/17 07:14 12/10/17 06:51 Labs: Microbiology - Last 24 Hours (Table) 12/09/17 13:10 Gram Stain - Final Bronchoalviolar Lavage - Right Bronchial Washings Culture - Final Assessment and Plan Assessment: Right perihilar mass with paratracheal lymphadenopathy. 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 Status post bronchoscopy on 12/09/2017. Possible pneumonia. Empiric antibiotics in the form of ceftriaxone and doxycycline Acute on Chronic back pain with degenerative disc disease at L5-S1 and L4-L5 with broad based disc bulging Hyponatremia 30 pack years of smoking Obesity with BMI 31.8 History of bipolar disorder Hypertension. Currently not taking any medications IBS DVT prophylaxis Plan: Patient will be continued on antibiotics and breathing treatments. Continue with steroids. Continue the pain management with morphine and Motrin when necessary. Follow up biopsy report.. Continue the pain management and further recommendations based on the clinical course. Prognosis is guarded. Time with Patient: Greater than 30
[2017-12-11] MEDS: methylPREDNISolone SOD SUCCI 40 MG/ML 1 ML VIAL IV SCH (18:17)
[2017-12-11] MEDS: hydrALAZINE HCL 25 MG TAB PO PRN (18:43)
[2017-12-11] MEDS: LORazepam 1 MG TAB PO PRN (21:02)
[2017-12-11] MEDS: MELATONIN 3 MG TABLET PO PRN (21:26)
[2017-12-11] MEDS: POLYETHYLENE GLYCOL 3350 17 GM POWD.PACK PO SCH (21:26)
[2017-12-11] MEDS: CYCLOBENZAPRINE 10 MG TAB PO PRN (21:27)
[2017-12-12] MEDS: methylPREDNISolone SOD SUCCI 40 MG/ML 1 ML VIAL IV SCH ×3 (00:24→15:38)
[2017-12-12] MEDS: DEXTROSE 5%-0.9% NACL 1,000 ML IV SCH (06:15)
[2017-12-12] MEDS: cefTRIAXone IN SWFI 1,000 MG/10 ML SYRINGE IVP SCH (06:15)
[2017-12-12] MEDS: MORPHINE SULFATE 2 MG/ML SYRINGE IVP PRN ×4 (06:22→19:59)
[2017-12-12] MEDS: IPRATROPIUM-ALBUTEROL 3 ML NEB INHALATION PRN ×2 (08:00→20:28)
[2017-12-12] MEDS: IBUPROFEN 600 MG TAB PO SCH ×3 (08:26→21:17)
[2017-12-12] MEDS: amLODIPine 10 MG TAB PO SCH (08:27)
[2017-12-12] MEDS: METOPROLOL TARTRATE 25 MG TAB PO SCH ×2 (08:27→21:17)
[2017-12-12] MEDS: DOXYCYCLINE 100 MG in SODIUM CHLORIDE 0.9% 100 ML IVPB SCH ×2 (08:27→21:17)
[2017-12-12] MEDS: DOCUSATE 100 MG CAP PO SCH ×2 (08:27→21:18)
[2017-12-12] MEDS: HEPARIN SODIUM,PORCINE 5,000 UNIT/ML 1 ML VIAL SQ SCH ×2 (08:27→21:27)
[2017-12-12] MEDS: FAMOTIDINE 20 MG TAB PO SCH ×2 (08:27→21:17)
--- NOTE | 2017-12-12 14:20 | P.PN ---
Subjective Progress Note Date: 12/12/17 Principal diagnosis: Right hilar lung mass, highly suggestive of primary bronchogenic carcinoma On today's evaluation, the patient's main complaint is back pain radiating to the right lower extremity. The CAT scan of the lumbosacral spine showed L5-S1 disease with disc bulge and the patient may experiencing some sciatica. No evidence of any metastatic involvement or compression fractures or cord pathology based on the CAT scan of the lumbosacral spine. Meanwhile, the patient underwent her bronchoscopy. Endobronchial abnormalities were noted in the right middle lobe and superior segment of the right lower lobe and biopsies were obtained. Results are still pending for now. Almost has a stable. Minimal amount of bloody respiratory secretions related to the procedure and the biopsies. She is taking [place] for pain control. She was also started on a combination of bronchodilators and systemic steroids regarding her COPD. On today's evaluation of 12/11/2017, the patient is improved in terms of her back pain. She was started on steroids yesterday and that helped her with her pain control. She is not having any respiratory difficulties. No cough or sputum production. No hemoptysis. No other complaints otherwise. Biopsies were done and the results are not available at this point in time and this will be discussed at a later stage on outpatient basis. Reevaluated today on 12/12/2017, patient is feeling better, less pain, less shortness of breath, remains on bronchodilators and steroids, cytology and pathology from surgical specimen from her bronchial biopsies are pending. Patient was told by Dr. Lundy that the bronchoscopic findings are highly suggestive of endobronchial tumor and we are waiting for the final pathology report to become available. In the meantime the patient could be considered for discharge planning, she will need to have on outpatient basis a PET scan, and follow-up with Dr. Lundy. Objective - Vital Signs Vital signs: Vital Signs Temp 97.9 F 12/12/17 07:00 Pulse 97 12/12/17 08:35 Resp 18 12/12/17 08:35 BP 169/96 12/12/17 07:00 Pulse Ox 94 L 12/12/17 07:00 Intake & Output 12/11/17 12/12/17 12/12/17 18:59 06:59 18:59 Intake Total 1370 350 Balance 1370 350 Intake: IV 600 350 Dextrose 5%-0.9% NaCl 1, 600 350 000 ml @ 50 mls/hr IV . Q20H [facility] Rx#:[id number] Oral 770 Other: Voiding Method Toilet Toilet Toilet # Voids 2 2 - Exam Physical Exam: Revealed a 52-year-old female in no distress. Head: Atraumatic, normocephalic. HEENT:[Neck is supple.] [No neck masses.] [No thyromegaly.] [No JVD.] Chest: [Diminished breath sounds at the bases, no crackles or rhonchi or wheezes. Cardiac Exam: [Normal S1 and S2, no S3 gallop, no murmur.] Abdomen: [Soft, nontender, no megaly, no rebound, no guarding, normal bowel sounds.] Extremities: [No clubbing, no edema, no cyanosis.] Neurological Exam: [No focal neurologic deficit.] Skin: No rashes. Lymphatics: No lymphadenopathy. - Labs CBC & Chem 7: 12/08/17 07:14 12/10/17 06:51 Labs: Microbiology - Last 24 Hours (Table) 12/09/17 13:10 Gram Stain - Final Bronchoalviolar Lavage - Right Bronchial Washings Culture - Final Assessment and Plan Assessment: 1 right hilar mass with paratracheal lymphadenopathy, highly suggestive underlying primary bronchogenic carcinoma,. The biopsy results are still pending at that is a high suspicion for bronchogenic carcinoma of the lung. 2 obesity 3 26-[id number] smoking history 4 shortness of breath, exertional likely underlying COPD and addition 5 hypertension 6 IBS 7 chronic back pain with lumbar disc disease 8 COPD Recommendation: Continue present supportive care measures, awaiting for the final pathology report from her last bronchoscopy, consider discharge planning and outpatient follow-up with Dr. Lundy. Time with Patient: Less than 30
[2017-12-12] MEDS: POLYETHYLENE GLYCOL 3350 17 GM POWD.PACK PO SCH (21:18)
[2017-12-12] MEDS ORDERED: cloNIDine HCL 0.1 MG TAB PO PRN (21:49)
[2017-12-12] MEDS: hydrALAZINE HCL 25 MG TAB PO PRN (22:00)
[2017-12-12] MEDS: HYDROcodone/APAP 5-325MG 1 EACH TAB PO PRN (22:03)
--- NOTE | 2017-12-12 23:37 | PN ---
PROGRESS NOTE DATE OF SERVICE: 12/12/2017 This 52-year-old woman who was admitted with right perihilar mass and possible pneumonia is being closely monitored. Bronchoscopy with biopsies was done by Dr. Guzman. Biopsy is pending at this time. No chest pain. No palpitations. No fever. PHYSICAL EXAMINATION: Alert and oriented x3. Pulse is 100, blood pressure 185/84, respiration 16, temperature normal, pulse ox 94% on room air. HEENT: Conjunctivae normal. Oral mucosa moist. NECK: No jugular venous distention. No carotid bruit. No lymph node enlargement. CARDIOVASCULAR SYSTEM: S1, S2 muffled. RESPIRATORY SYSTEM: Breath sounds diminished at the bases. A few scattered rhonchi and crackles. ABDOMEN: Soft, nontender. No mass palpable. LEGS: No edema. No swelling. NERVOUS SYSTEM: Higher functions as mentioned earlier. Moves all 4 limbs. No focal motor or sensory deficit. LYMPHATICS: No lymph node palpable in neck, axillae or groin. SKIN: No ulcer, rash, bleeding. LABS AT THIS TIME: Platelets 116. Sodium 133. ASSESSMENT: 1. Right perihilar mass with paratracheal lymphadenopathy, status post bronchoscopy, possible bronchogenic carcinoma. 2. Possible pneumonia, on empiric antibiotics, possibly gram-negative. 3. Acute on chronic back pain with degenerative joint disease. 4. Hyponatremia. 5. History of nicotine dependence. 6. Obesity. 7. History of bipolar. 8. Hypertension. 9. History of irritable bowel syndrome. RECOMMENDATIONS AND DISCUSSION: I recommend to continue current medication, continue with symptomatic treatment. Norvasc has been added. P.r.n. medication. Monitor blood pressure closely. Closely follow with Dr. Guzman. Guarded prognosis because of multiple complex medical issues. Further recommendations to follow. Await biopsy report. MMODL / IJN: [id number] /
[2017-12-13] MEDS: MORPHINE SULFATE 2 MG/ML SYRINGE IVP PRN ×3 (00:13→09:59)
[2017-12-13] MEDS: methylPREDNISolone SOD SUCCI 40 MG/ML 1 ML VIAL IV SCH ×2 (00:13→10:56)
[2017-12-13] MEDS: MELATONIN 5 MG TABLET PO PRN ×2 (00:38→22:52)
[2017-12-13] MEDS: cefTRIAXone IN SWFI 1,000 MG/10 ML SYRINGE IVP SCH (05:12)
[2017-12-13] MEDS: hydrALAZINE HCL 25 MG TAB PO PRN (06:17)
[2017-12-13 08:07] LABS: Basophils # (A) 0.1 k/uL (0-0.2); Basophils % (A) 0 %; Eosinophils # (A) 0.1 k/uL (0-0.7); Eosinophils % (A) 0 %; HCT 42.9 % (34.0-46.0); HGB 14.9 gm/dL (11.4-16.0); Lymphocytes # (A) 3.6 k/uL (1.0-4.8); Lymphocytes % (A) 15 %; MCH 32.4 pg (25.0-35.0); MCHC 34.7 g/dL (31.0-37.0); MCV 93.2 fL (80.0-100.0); Mean Platelet Volume 7.5; Monocytes # (A) 1.3 k/uL (0-1.0); Monocytes % (A) 5 %; Neutrophils # (A) 18.7 k/uL (1.3-7.7); Neutrophils % (A) 78 %; Platelet Count 160 k/uL (150-450); RDW 12.9 % (11.5-15.5); WBC 23.9 k/uL (3.8-10.6)
[2017-12-13 08:10] LABS: Anion Gap 8 mmol/L; Blood Urea Nitrogen 15 mg/dL (7-17); Calcium 9.4 mg/dL (8.4-10.2); Carbon Dioxide 31 mmol/L (22-30); Chloride 90 mmol/L (98-107); Glucose 138 mg/dL (74-99); Potassium 4.6 mmol/L (3.5-5.1); Sodium 129 mmol/L (137-145)
[2017-12-13] MEDS: IPRATROPIUM-ALBUTEROL 3 ML NEB INHALATION PRN (09:14)
[2017-12-13] MEDS: DEXTROSE 5%-0.9% NACL 1,000 ML IV SCH ×2 (09:50→09:51)
[2017-12-13] MEDS: HEPARIN SODIUM,PORCINE 5,000 UNIT/ML 1 ML VIAL SQ SCH ×2 (09:51→20:04)
[2017-12-13] MEDS: FAMOTIDINE 20 MG TAB PO SCH ×2 (09:51→20:04)
[2017-12-13] MEDS: DOXYCYCLINE 100 MG in SODIUM CHLORIDE 0.9% 100 ML IVPB SCH ×2 (09:52→20:03)
[2017-12-13] MEDS: amLODIPine 10 MG TAB PO SCH (09:52)
[2017-12-13] MEDS: DOCUSATE 100 MG CAP PO SCH ×2 (09:52→20:04)
[2017-12-13] MEDS: METOPROLOL TARTRATE 25 MG TAB PO SCH ×2 (09:52→20:04)
[2017-12-13] MEDS: IBUPROFEN 600 MG TAB PO SCH ×3 (09:59→22:52)
[2017-12-13] MEDS ORDERED: LACTULOSE 20 GM/30 ML CUP PO ONE (10:10)
[2017-12-13] MEDS ORDERED: LACTULOSE 20 GM/30 ML CUP PO PRN (10:11)
[2017-12-13] MEDS ORDERED: cloNIDine HCL 0.1 MG TAB PO PRN (11:11)
--- NOTE | 2017-12-13 12:25 | P.PN ---
Subjective Progress Note Date: 12/13/17 Principal diagnosis: Right hilar lung mass, highly suggestive of primary bronchogenic carcinoma, status post biopsy, results are pending On today's evaluation, the patient's main complaint is back pain radiating to the right lower extremity. The CAT scan of the lumbosacral spine showed L5-S1 disease with disc bulge and the patient may experiencing some sciatica. No evidence of any metastatic involvement or compression fractures or cord pathology based on the CAT scan of the lumbosacral spine. Meanwhile, the patient underwent her bronchoscopy. Endobronchial abnormalities were noted in the right middle lobe and superior segment of the right lower lobe and biopsies were obtained. Results are still pending for now. Almost has a stable. Minimal amount of bloody respiratory secretions related to the procedure and the biopsies. She is taking [place] for pain control. She was also started on a combination of bronchodilators and systemic steroids regarding her COPD. On today's evaluation of 12/11/2017, the patient is improved in terms of her back pain. She was started on steroids yesterday and that helped her with her pain control. She is not having any respiratory difficulties. No cough or sputum production. No hemoptysis. No other complaints otherwise. Biopsies were done and the results are not available at this point in time and this will be discussed at a later stage on outpatient basis. Reevaluated today on 12/12/2017, patient is feeling better, less pain, less shortness of breath, remains on bronchodilators and steroids, cytology and pathology from surgical specimen from her bronchial biopsies are pending. Patient was told by Dr. Lundy that the bronchoscopic findings are highly suggestive of endobronchial tumor and we are waiting for the final pathology report to become available. In the meantime the patient could be considered for discharge planning, she will need to have on outpatient basis a PET scan, and follow-up with Dr. Lundy. On 12/13/2017 patient seen again on oncology floor. Having significant amount of back pain, and pain underneath her bilateral rib cages. Her breathing seems to be better, room air pulse ox is 93%, she is afebrile, slightly tachycardic at times, with a heart rate up to 106 BPM, is noted to be hypertensive, and her systolic blood pressures have been ranging from 150-1 90 mmHg, with diastolic between 80-100 mmHg. Her right hilar lung mass pathology report is still pending, the results of the biopsies are not available. Nonproductive cough, lung sounds positive for fine crackles over left posterior lower lobe, clear on the right, patient is on empiric antibiotics in the form of Rocephin and doxycycline, bronco wash cultures and fungal cultures remain negative to date. On today's blood work WBC is up to 23.9, hemoglobin is 14.9, sodium is 129, potassium is 4.6, chloride is 90, CO2 31, BUN is 15, creatinine 0.50. Objective - Vital Signs Vital signs: Vital Signs Temp 98.3 F 12/13/17 08:50 Pulse 89 12/13/17 11:10 Resp 16 12/13/17 08:50 BP 179/97 12/13/17 11:10 Pulse Ox 93 L 12/13/17 09:16 Intake & Output 12/12/17 12/13/17 12/13/17 18:59 06:59 18:59 Intake Total 350 700 Balance 350 700 Weight 78.925 kg Intake: IV 350 200 Dextrose 5%-0.9% NaCl 1, 350 200 000 ml @ 50 mls/hr IV . Q20H [facility] Rx#:[id number] Intake, IV Titration 500 Amount Dextrose 5%-0.9% NaCl 1, 400 000 ml @ 50 mls/hr IV . Q20H [facility] Rx#:[id number] Doxycycline 100 mg In 100 Sodium Chloride 0.9% 100 ml @ 66.67 mls/hr IVPB Q12HR [facility] Rx#:[id number] Other: Voiding Method Toilet Toilet Toilet - Exam Physical Exam: Revealed a 52-year-old female in no distress. Head: Atraumatic, normocephalic. HEENT:[Neck is supple.] [No neck masses.] [No thyromegaly.] [No JVD.] Chest: [Diminished breath sounds at the bases, with fine crackles over left lower lobe Cardiac Exam: [Normal S1 and S2, no S3 gallop, no murmur.] Abdomen: [Soft, nontender, no megaly, no rebound, no guarding, normal bowel sounds.] Extremities: [No clubbing, no edema, no cyanosis.] Neurological Exam: [No focal neurologic deficit.] Skin: No rashes. Lymphatics: No lymphadenopathy. - Labs CBC & Chem 7: 12/13/17 07:29 18 07:29 Labs: Abnormal Lab Results - Last 24 Hours (Table) 12/13/17 12/13/17 Range/Units 07:29 07:29 WBC 23.9 H (3.8-10.6) k/uL Neutrophils # 18.7 H (1.3-7.7) k/uL Monocytes # 1.3 H (0-1.0) k/uL Sodium 129 L (137-145) mmol/L Chloride 90 L (98-107) mmol/L Carbon Dioxide 31 H (22-30) mmol/L Creatinine 0.50 L (0.52-1.04) mg/dL Glucose 138 H (74-99) mg/dL Assessment and Plan Plan: Assessment: 1 right hilar mass with paratracheal lymphadenopathy, highly suggestive underlying primary bronchogenic carcinoma,. The biopsy results of the posterior right lower lobe transbronchial biopsy was positive for malignant neoplasm with marked crush artifact consistent with primary pulmonary small cell carcinoma. Right middle lobe was positive for high-grade malignant epithelial neoplasm with severe crush artifact consistent with small cell carcinoma of the lung. Fine-needle aspiration of right middle and right lower lobe cytology was positive for high-grade neoplasm. 2 obesity 3 [id number] smoking history 4 shortness of breath, exertional likely underlying COPD and addition 5 hypertension 6 IBS 7 chronic back pain with lumbar disc disease 8 COPD The results of the transbronchial biopsies of the right middle and lower lobe and a cytology report of the fine-needle aspiration from right middle and right lower lobe were positive for high-grade neoplasm, small cell carcinoma of the lung. We'll consult medical oncology. We'll continue with current medical treatments. I performed a history & physical examination of the patient and discussed their management with my nurse practitioner, Mony Stallworth. I reviewed the nurse practitioner's note and agree with the documented findings and plan of care. Lung sounds are positive for fine crackles over left posterior lower lobe. The findings and the impression was discussed with the patient. I attest to the documentation by the nurse practitioner. Time with Patient: Less than 30
[2017-12-13] MEDS: cloNIDine HCL 0.1 MG TAB PO SCH ×3 (13:11→22:52)
[2017-12-13] MEDS: LACTULOSE 20 GM/30 ML CUP PO SCH ×3 (15:12→21:38)
--- NOTE | 2017-12-13 16:05 | PN ---
PROGRESS NOTE DATE OF SERVICE: 12/13/2017 This 52-year-old woman who was admitted with right perihilar mass and paratracheal lymphadenopathy, had a bronchoscopy. The patient also had a possible pneumonia. Final biopsy reports are pending at this time. No chest pain. No palpitations. No fever. PHYSICAL EXAM: Alert and oriented x3. Pulse is 92, blood pressure 177/98, respirations 16, temperature 98.1, pulse ox 98% on room air. HEENT: Conjunctivae normal. Oral mucosa moist. Neck is no jugular venous distention. No carotid bruit. No lymph node enlargement. CARDIOVASCULAR: S1, S2. RESPIRATORY: Breath sounds diminished in the bases. A few scattered rhonchi and crackles. ABDOMEN: Soft, nontender. LEGS: No edema. LABS: WBC 23.9, hemoglobin 14.2, sodium 129. Other labs are noted. ASSESSMENT: 1. Right perihilar mass with paratracheal lymphadenopathy status post bronchoscopy, biopsy pending. 2. Possible bronchogenic carcinoma. 3. Possible pneumonia on empiric antibiotics, possibly gram-negative. 4. Acute on chronic back pain and degenerative joint disease. 5. Hyponatremia. 6. History of nicotine dependence. 7. Obesity. 8. History of bipolar. 9. Hypertension. 10.History of irritable bowel syndrome. RECOMMENDATIONS AND DISCUSSION: I recommend to continue current management and symptomatic treatment. Taper the steroids. Otherwise closely follow with Dr. Guzman. Await biopsy report. Further recommendations to follow. MMODL / IJN: [id number] /
[2017-12-13] MEDS: predniSONE 10 MG TAB PO SCH (17:19)
[2017-12-13] MEDS: POLYETHYLENE GLYCOL 3350 17 GM POWD.PACK PO SCH (20:05)
[2017-12-14] MEDS: LACTULOSE 20 GM/30 ML CUP PO SCH ×5 (04:52→17:40)
[2017-12-14] MEDS: cefTRIAXone IN SWFI 1,000 MG/10 ML SYRINGE IVP SCH (05:20)
[2017-12-14 07:38] LABS: Basophils # (A) 0.1 k/uL (0-0.2); Basophils % (A) 0 %; Eosinophils # (A) 0.1 k/uL (0-0.7); Eosinophils % (A) 1 %; HCT 39.1 % (34.0-46.0); HGB 13.2 gm/dL (11.4-16.0); Lymphocytes # (A) 3.7 k/uL (1.0-4.8); Lymphocytes % (A) 20 %; MCH 31.5 pg (25.0-35.0); MCHC 33.7 g/dL (31.0-37.0); MCV 93.5 fL (80.0-100.0); Mean Platelet Volume 7.6; Monocytes # (A) 0.9 k/uL (0-1.0); Monocytes % (A) 5 %; Neutrophils # (A) 13.4 k/uL (1.3-7.7); Neutrophils % (A) 73 %; Platelet Count 110 k/uL (150-450); RBC 4.18 m/uL (3.80-5.40); RDW 12.7 % (11.5-15.5); WBC 18.4 k/uL (3.8-10.6)
[2017-12-14 08:24] LABS: Anion Gap 11 mmol/L; Blood Urea Nitrogen 15 mg/dL (7-17); Calcium 9.1 mg/dL (8.4-10.2); Carbon Dioxide 25 mmol/L (22-30); Chloride 93 mmol/L (98-107); Glucose 102 mg/dL (74-99); Sodium 129 mmol/L (137-145)
[2017-12-14] MEDS: DOXYCYCLINE 100 MG in SODIUM CHLORIDE 0.9% 100 ML IVPB SCH ×2 (09:45→21:50)
[2017-12-14] MEDS: cloNIDine HCL 0.1 MG TAB PO SCH ×3 (09:47→21:52)
[2017-12-14] MEDS: METOPROLOL TARTRATE 25 MG TAB PO SCH ×2 (09:47→21:51)
[2017-12-14] MEDS: FAMOTIDINE 20 MG TAB PO SCH ×2 (09:47→21:50)
[2017-12-14] MEDS: amLODIPine 10 MG TAB PO SCH (09:47)
[2017-12-14] MEDS: DOCUSATE 100 MG CAP PO SCH ×2 (09:47→21:50)
[2017-12-14] MEDS: HEPARIN SODIUM,PORCINE 5,000 UNIT/ML 1 ML VIAL SQ SCH ×2 (09:47→21:50)
[2017-12-14] MEDS: predniSONE 10 MG TAB PO SCH (09:48)
[2017-12-14] MEDS: IPRATROPIUM-ALBUTEROL 3 ML NEB INHALATION PRN ×2 (09:51→19:53)
[2017-12-14] MEDS: HYDROcodone/APAP 5-325MG 1 EACH TAB PO PRN ×2 (09:54→18:23)
[2017-12-14] MEDS: IBUPROFEN 600 MG TAB PO SCH ×3 (10:40→21:54)
--- NOTE | 2017-12-14 10:52 | P.CONS ---
History of Present Illness - Reason for Consult Consult date: 12/13/17 small cell new diagnosis Requesting physician: Abdiel Guzman - Chief Complaint low back pain - History of Present Illness The patient is a 52-year-old female with a [id number] smoking history, who has quit within the past 10 months. She was hospitalized secondary to progressive low back pain and dyspnea on exertion. The patient's oncologic history began within the past 2-3 weeks. She had developed a severe pain in her low back, which radiated to both legs. She reports that this pain was constant, and would keep her up at night. The pain could be up to 9 out of 10, and this did not have any significant exacerbating factors. The patient did not notice this pain being any worse with ambulation. At approximately the same time, the patient was noticing increased dyspnea on exertion. Over the past few weeks, even short walks would be significantly more difficult than they were in the past. She presented to the hospital at [place] on December 07, 2017. She was having headache at this time as well. A CT scan of the brain was unremarkable. She underwent a CT scan of the lumbar spine without contrast. This revealed disc bulging at L3 through 5, but no significant central canal stenosis. No clear evidence of metastatic lesions either. A CT scan PE protocol was also performed. This revealed a 4.8 x 3.6 cm right hilar mass with partial obstruction of the right upper and lower lobes. There was also a 2.6 cm consolidation within the right lower lobe which was considered possibly a small pneumonia. The patient was subsequently transferred to [facility]. She was evaluated by pulmonology, and had bronchoscopy performed on December 09. Endobronchial abnormalities were seen first at the secondary jessica between the right upper and right middle lobes. Within the right middle lobe bronchus and right lower lobe bronchus there were further endobronchial abnormalities resulting in 50% narrowing of both. Biopsy of these areas revealed small cell lung cancer. At this current time, the patient's back pain is still bothersome, but she believes that the steroids have been helping slightly. She is hoping to have some improvement in pain control prior to possible discharge. Review of Systems Constitutional: Denies chills, Denies fever Eyes: denies blurred vision Ears: deny: decreased hearing Ears, nose, mouth and throat: Denies ant. neck pain, Denies hoarseness Cardiovascular: Reports dyspnea on exertion, Reports leg edema, Denies chest pain Respiratory: Reports cough, Denies pleurisy Gastrointestinal: Denies abdominal pain, Denies change in bowel habits Genitourinary: Denies flank pain Musculoskeletal: Reports leg numbness/tingling Integumentary: Denies rash Neurological: Denies aphasia, Denies ataxia, Denies confusion, Denies double vision, Denies headaches Psychiatric: Denies anxiety Past Medical History Past Medical History: No Reported History Additional Past Medical History / Comment(s): Obesity, bipolar disorder, hypertension, acid reflux, smoker, IBS and previous history of pneumonia History of Any Multi-Drug Resistant Organisms: None Reported Past Surgical History: Hysterectomy, Orthopedic Surgery Additional Past Surgical History / Comment(s): R knee ACL repair, cyst removal under tongue, hemorroid surgery Past Anesthesia/Blood Transfusion Reactions: No Reported Reaction Past Psychological History: Anxiety, Bipolar, Depression Smoking Status: Former smoker Past Alcohol Use History: None Reported Additional Past Alcohol Use History / Comment(s): pt states history of alcohol dependence. Occassionally drinks currently Past Drug Use History: None Reported - Past Family History Mother Family Medical History: CVA/TIA, Hypertension, Rheumatoid Arthritis ([place]) Father Family Medical History: Hypertension, Myocardial Infarction ([place]), Rheumatoid Arthritis (RA) Medications and Allergies Home Medications Medication Instructions Recorded Confirmed Type Melatonin 10 mg PO HS 12/08/17 12/08/17 History Allergies Allergy/AdvReac Type Severity Reaction Status Date / Time No Known Allergies Allergy Verified 12/09/17 11:25 Physical Exam Vitals: Vital Signs Temp Pulse Pulse Resp BP BP Pulse Ox 12/14/17 10:02 104 H 12/14/17 09:51 100 12/14/17 08:00 16 12/14/17 05:00 97.4 F L 83 16 180/86 95 12/13/17 23:00 98.3 F 82 18 150/81 96 12/13/17 21:49 16 12/13/17 14:39 98.1 F 92 16 177/90 92 L 12/13/17 11:10 89 179/97 Intake and Output 12/13/17 12/14/17 12/14/17 22:59 06:59 14:59 Intake Total 590 620 Balance 590 620 Intake: IV 160 Dextrose 5%-0.9% NaCl 1, 160 000 ml @ 50 mls/hr IV . Q20H TAMIKA Rx#:[id number] Intake, IV Titration 100 Amount Doxycycline 100 mg In 100 Sodium Chloride 0.9% 100 ml @ 66.67 mls/hr IVPB Q12HR TAMIKA Rx#:[id number] Oral 590 360 Other: Voiding Method Toilet Toilet # Voids 2 2 # Bowel Movements 3 Weight 78.925 kg - Constitutional General appearance: no acute distress, obese - EENT Eyes: EOMI, PERRLA ENT: hearing grossly normal - Neck Neck: no lymphadenopathy (No cervical adenopathy, she has some fullness of the bilateral SCV but no discrete nodules), no rigidity - Respiratory Respiratory: right: diminished, left: CTA - Cardiovascular Rhythm: regular Heart sounds: normal: S1, S2 - Gastrointestinal General gastrointestinal: no organomegaly, no tenderness - Integumentary Integumentary: normal - Neurologic Neurologic: CNII-XII intact - Musculoskeletal Musculoskeletal: gait normal, strength equal bilaterally (However 4+/5 strengh bilateral hip flexion) - Psychiatric Psychiatric: A&O x's 3, appropriate affect, intact judgment & insight Results CBC & Chem 7: 12/14/17 07:09 12/14/17 07:09 Labs: Abnormal Lab Results - Last 24 Hours (Table) 12/14/17 12/14/17 Range/Units 07:09 07:09 WBC 18.4 H (3.8-10.6) k/uL Plt Count 110 L (150-450) k/uL Neutrophils # 13.4 H (1.3-7.7) k/uL Sodium 129 L (137-145) mmol/L Chloride 93 L (98-107) mmol/L Glucose 102 H (74-99) mg/dL CT scan - chest: report reviewed, image reviewed CT Scan - head: report reviewed, image reviewed Assessment and Plan Plan: 1. Newly diagnosed small cell lung cancer: I had a long discussion with the patient regarding the natural history of the disease, and the distinction between extensive and limited stage small cell. I explained to the patient she would be done undergo a PET/CT scan as an outpatient as well as an MRI of the brain to complete her workup. I explained to the patient that radiotherapy has a definitive role in patients with limited stage disease, and often a palliative role in patients with extensive disease. 2. Lower back pain: Outside CT scan of the lumbar spine was unremarkable, however the timing and nature of this pain is worrisome for relation to her recently diagnosed small cell lung cancer. I discussed with the patient and her medical oncologist further imaging examination such as MRI of the lumbosacral region versus CT scan of the abdomen and pelvis. We are favoring the patient undergoing a CT scan of the abdomen and pelvis as this would also assess for retroperitoneal adenopathy which could contribute to the pain. 3. Headache: Although the patient's outside brain CT is unremarkable, she initially presented with headache and will require MRI of the brain to rule out metastatic disease. This can be arranged while the patient is still in house. Of note, the patient lives approximately 1 hour from our treatment facility. She appears motivated to receive her treatment location, but if she ends up having limited stage disease and requires 6 weeks of radiotherapy she may consider going closer to home. Time with Patient: Greater than 30
[2017-12-14] MEDS: ALPRAZolam 0.25 MG TAB PO PRN ×2 (13:43→21:52)
--- NOTE | 2017-12-14 16:12 | P.PN ---
Subjective Progress Note Date: 12/14/17 Principal diagnosis: Right hilar lung mass, highly suggestive of primary bronchogenic carcinoma, status post biopsy, results are pending On today's evaluation, the patient's main complaint is back pain radiating to the right lower extremity. The CAT scan of the lumbosacral spine showed L5-S1 disease with disc bulge and the patient may experiencing some sciatica. No evidence of any metastatic involvement or compression fractures or cord pathology based on the CAT scan of the lumbosacral spine. Meanwhile, the patient underwent her bronchoscopy. Endobronchial abnormalities were noted in the right middle lobe and superior segment of the right lower lobe and biopsies were obtained. Results are still pending for now. Almost has a stable. Minimal amount of bloody respiratory secretions related to the procedure and the biopsies. She is taking [place] for pain control. She was also started on a combination of bronchodilators and systemic steroids regarding her COPD. On today's evaluation of 12/11/2017, the patient is improved in terms of her back pain. She was started on steroids yesterday and that helped her with her pain control. She is not having any respiratory difficulties. No cough or sputum production. No hemoptysis. No other complaints otherwise. Biopsies were done and the results are not available at this point in time and this will be discussed at a later stage on outpatient basis. Reevaluated today on 12/12/2017, patient is feeling better, less pain, less shortness of breath, remains on bronchodilators and steroids, cytology and pathology from surgical specimen from her bronchial biopsies are pending. Patient was told by Dr. Lundy that the bronchoscopic findings are highly suggestive of endobronchial tumor and we are waiting for the final pathology report to become available. In the meantime the patient could be considered for discharge planning, she will need to have on outpatient basis a PET scan, and follow-up with Dr. Lundy. On 12/13/2017 patient seen again on oncology floor. Having significant amount of back pain, and pain underneath her bilateral rib cages. Her breathing seems to be better, room air pulse ox is 93%, she is afebrile, slightly tachycardic at times, with a heart rate up to 106 BPM, is noted to be hypertensive, and her systolic blood pressures have been ranging from 150-1 90 mmHg, with diastolic between 80-100 mmHg. Her right hilar lung mass pathology report is still pending, the results of the biopsies are not available. Nonproductive cough, lung sounds positive for fine crackles over left posterior lower lobe, clear on the right, patient is on empiric antibiotics in the form of Rocephin and doxycycline, bronco wash cultures and fungal cultures remain negative to date. On today's blood work WBC is up to 23.9, hemoglobin is 14.9, sodium is 129, potassium is 4.6, chloride is 90, CO2 31, BUN is 15, creatinine 0.50. On 12/14/2017 patient seen in follow-up on oncology floor. She was seen by radiation oncology and medical oncology, she will be going for a CT of abdomen and pelvis today, and she will have MRI of the brain rule out metastatic disease. Vital signs remain stable, room air pulse ox is 93%, she is afebrile, her pain under her bilateral rib cage and in her back still remains, although seems to be slightly improved. Patient reports breathing a bit better, and this is probably related to better pain control. Lung sounds are positive for minimal scattered wheezes, diminished breath sounds noted. His labs were reviewed, [place] BC is trending down, down to 18.4, sodium is 129, potassium is 4.0, chloride is 93, BUN 17, creatinine 0.56. She remains on empiric antibiotics in the form of Rocephin, nebulized bronchodilator's, and oral steroids. Objective - Vital Signs Vital signs: Vital Signs Temp 97.7 F 12/14/17 14:40 Pulse 83 12/14/17 14:40 Resp 20 12/14/17 14:40 BP 121/76 12/14/17 14:40 Pulse Ox 93 L 12/14/17 14:40 Intake & Output 12/13/17 12/14/17 12/14/17 18:59 06:59 18:59 Intake Total 400 1210 Balance 400 1210 Weight 78.925 kg 78.925 kg Intake: IV 400 160 Dextrose 5%-0.9% NaCl 1, 400 160 000 ml @ 50 mls/hr IV . Q20H TAMIKA Rx#:[id number] Intake, IV Titration 100 Amount Doxycycline 100 mg In 100 Sodium Chloride 0.9% 100 ml @ 66.67 mls/hr IVPB Q12HR TAMIKA Rx#:[id number] Oral 950 Other: Voiding Method Toilet Toilet Toilet # Voids 4 2 2 # Bowel Movements 3 - Exam Physical Exam: Revealed a 52-year-old female in no distress. Head: Atraumatic, normocephalic. HEENT:[Neck is supple.] [No neck masses.] [No thyromegaly.] [No JVD.] Chest: [Diminished breath sounds at the bases, a few limited wheezes Cardiac Exam: [Normal S1 and S2, no S3 gallop, no murmur.] Abdomen: [Soft, nontender, no megaly, no rebound, no guarding, normal bowel sounds.] Extremities: [No clubbing, no edema, no cyanosis.] Neurological Exam: [No focal neurologic deficit.] Skin: No rashes. Lymphatics: No lymphadenopathy. - Labs CBC & Chem 7: 12/14/17 07:09 12/14/17 07:09 Labs: Abnormal Lab Results - Last 24 Hours (Table) 12/14/17 12/14/17 Range/Units 07:09 07:09 WBC 18.4 H (3.8-10.6) k/uL Plt Count 110 L (150-450) k/uL Neutrophils # 13.4 H (1.3-7.7) k/uL Sodium 129 L (137-145) mmol/L Chloride 93 L (98-107) mmol/L Glucose 102 H (74-99) mg/dL Assessment and Plan Plan: Assessment: 1 right hilar mass with paratracheal lymphadenopathy, highly suggestive underlying primary bronchogenic carcinoma,. The biopsy results of the posterior right lower lobe transbronchial biopsy was positive for malignant neoplasm with marked crush artifact consistent with primary pulmonary small cell carcinoma. Right middle lobe was positive for high-grade malignant epithelial neoplasm with severe crush artifact consistent with small cell carcinoma of the lung. Fine-needle aspiration of right middle and right lower lobe cytology was positive for high-grade neoplasm. 2 obesity 3 [id number] smoking history 4 shortness of breath, exertional likely underlying COPD and addition 5 hypertension 6 IBS 7 chronic back pain with lumbar disc disease 8 COPD Continue current medical treatment, patient's pain seems to be slightly better controlled, and the patient is breathing easier. Patient is going for CT of abdomen and pelvis and MRI of her brain. Otherwise is breathing easier, vital signs are stable, anticipate discharge in next 24 hours from pulmonary standpoint, so the patient can complete her PET/computed tomography scan on an outpatient basis. I performed a history & physical examination of the patient and discussed their management with my nurse practitioner, Mony Stallworth. I reviewed the nurse practitioner's note and agree with the documented findings and plan of care. Lung sounds are positive for for a few limited wheezes. The findings and the impression was discussed with the patient. I attest to the documentation by the nurse practitioner. Time with Patient: Less than 30
--- NOTE | 2017-12-14 16:36 | PN ---
PROGRESS NOTE DATE OF SERVICE: 12/14/2017 This 52-year-old woman was admitted with right perihilar mass and possible bronchogenic carcinoma. The final biopsy report showed small-cell lung cancer. Radiation Oncology recommended a PET scan and MRI to complete the workup. No chest pain. No palpitations. No fever. PHYSICAL EXAMINATION: Alert and oriented x3. Pulse is 100, blood pressure 180/86, respirations 16, temperature 97.4, pulse ox 94% on room air. HEENT: Conjunctivae normal. Oral mucosa moist. NECK: No jugular venous distention. No carotid bruit. No lymph node enlargement. CARDIOVASCULAR SYSTEM: S1, S2 muffled. RESPIRATORY SYSTEM: Breath sounds diminished at the bases. A few rhonchi and crackles. ABDOMEN: Soft, non-tender. LEGS: No edema. No swelling. NERVOUS SYSTEM: No focal deficit. LABS: WBC 18.4, hemoglobin 13.2. Sodium 129. ASSESSMENT: 1. Right perihilar mass with paratracheal lymphadenopathy, status post bronchoscopy, biopsy showing small-cell lung cancer. 2. Pneumonia, possibly post-obstructive, on empiric antibiotics, possibly gram- negative. 3. Acute on chronic back pain; possible degenerative joint disease. 4. Hyponatremia. 5. History of nicotine dependence. 6. Obesity. 7. History of bipolar. 8. Hypertension. 9. History of irritable bowel syndrome. RECOMMENDATIONS AND DISCUSSION: In this 52-year-old woman who presented with multiple complex medical issues, we will monitor the patient closely. I would recommend to continue the current medications. Radiation Oncology input appreciated. We will await MRI reports. Once we get the reports of this test, the patient may be able to be discharged home with further plans for outpatient followup. Once again, the prognosis is guarded because of multiple complex medical issues. Further recommendations to follow. MMODL / IJN: [id number] /
--- NOTE | 2017-12-14 16:44 | P.CONS ---
History of Present Illness - Reason for Consult Consult date: 12/14/17 small cell lung carcinoma Requesting physician: Mony Stallworth - Chief Complaint URIAH, LBP - History of Present Illness Mrs. Brown is a very pleasant 52-year-old female who states she notes physical changes and symptoms starting 2 months ago. She noticed low back pain that was new for her, dizziness and headaches and changes in her breathing. The pain in her back is sharp, starts at the tailbone, radiates upward and around the hips. This was causing her to have difficulty being mobile. Over the last 2 weeks her breathing progressively worsened to where she could not make it up the stairs in her house. Has left upper quadrant pain occasionally, bilateral lower extremity swelling and some swelling in the right neck is of more recent onset and new for her. Patient denies fevers, night sweats, unintentional weight loss, odynophagia, vomiting, acute changes in bowel or bladder habits. She quit smoking 10 mo ago, no personal history of cancer. Review of Systems 14 point review of systems is as stated in HPI Past Medical History Past Medical History: No Reported History, Cancer (small cell lung cancer diagnosed 12/09/17) Additional Past Medical History / Comment(s): Obesity, bipolar disorder, hypertension, acid reflux, smoker, IBS and previous history of pneumonia History of Any Multi-Drug Resistant Organisms: None Reported Past Surgical History: Hysterectomy, Orthopedic Surgery Additional Past Surgical History / Comment(s): R knee ACL repair, cyst removal under tongue, hemorroid surgery, bronchoscopy and biopsy 12/09/17 Past Anesthesia/Blood Transfusion Reactions: No Reported Reaction Past Psychological History: Anxiety, Bipolar, Depression Smoking Status: Former smoker Past Alcohol Use History: None Reported Additional Past Alcohol Use History / Comment(s): pt states history of alcohol dependence. Occassionally drinks currently Past Drug Use History: None Reported - Past Family History Mother Family Medical History: CVA/TIA, Hypertension, Rheumatoid Arthritis (RA) Father Family Medical History: Hypertension, Myocardial Infarction ([place]), Rheumatoid Arthritis (RA) Medications and Allergies Home Medications Medication Instructions Recorded Confirmed Type Melatonin 10 mg PO HS 12/08/17 12/08/17 History Allergies Allergy/AdvReac Type Severity Reaction Status Date / Time No Known Allergies Allergy Verified 12/09/17 11:25 Physical Exam Vitals: Vital Signs Temp Pulse Pulse Resp BP Pulse Ox 12/14/17 14:40 97.7 F 83 20 121/76 93 L 12/14/17 13:41 81 134/75 12/14/17 10:02 104 H 12/14/17 09:51 100 12/14/17 08:00 16 12/14/17 05:00 97.4 F L 83 16 180/86 95 12/13/17 23:00 98.3 F 82 18 150/81 96 12/13/17 21:49 16 Intake and Output 12/14/17 12/14/17 12/14/17 06:59 14:59 22:59 Intake Total 620 Balance 620 Intake: IV 160 Dextrose 5%-0.9% NaCl 1, 160 000 ml @ 50 mls/hr IV . Q20H [facility]IKA Rx#:[id number] Intake, IV Titration 100 Amount Doxycycline 100 mg In 100 Sodium Chloride 0.9% 100 ml @ 66.67 mls/hr IVPB Q12HR [facility]IKA Rx#:[id number] Oral 360 Other: Voiding Method Toilet # Voids 2 2 # Bowel Movements 3 Weight 78.925 kg - Constitutional General appearance: cooperative, mild distress, obese - EENT Eyes: anicteric sclerae, EOMI ENT: normal oropharynx - Neck fullness bilateral supraclavicular areas, fullness to the neck Neck: no lymphadenopathy - Respiratory Respiratory: bilateral: diminished (respirations are mildly labored with speaking) - Cardiovascular Rhythm: regular Heart sounds: normal: S1, S2 leg Peripheral Edema: bilateral: 1+ - Gastrointestinal General gastrointestinal: no absent bowel sounds, no decreased bowel sounds, no distended, no hepatomegaly, no hyperactive bowel sounds, normal bowel sounds, no organomegaly, no rigid, no scaphoid, soft, no splenomegaly, no tenderness, no umbilical hernia, no ventral hernia - Integumentary Integumentary: normal - Neurologic Neurologic: CNII-XII intact - Musculoskeletal ppain with palpation to the mid and lower spine as well as the top of the iliac crests Musculoskeletal: strength equal bilaterally - Psychiatric Psychiatric: A&O x's 3, appropriate affect, intact judgment & insight Results CBC & Chem 7: 12/14/17 07:09 12/14/17 07:09 Labs: Abnormal Lab Results - Last 24 Hours (Table) 12/14/17 12/14/17 Range/Units 07:09 07:09 WBC 18.4 H (3.8-10.6) k/uL Plt Count 110 L (150-450) k/uL Neutrophils # 13.4 H (1.3-7.7) k/uL Sodium 129 L (137-145) mmol/L Chloride 93 L (98-107) mmol/L Glucose 102 H (74-99) mg/dL Chest x-ray: report reviewed Assessment and Plan (1) Small cell lung cancer, right middle lobe Current Visit: Yes Status: Acute Priority: High Code(s): C34.2 - MALIGNANT NEOPLASM OF MIDDLE LOBE, BRONCHUS OR LUNG SNOMED Code(s): 616843983 (2) Small cell lung cancer, right lower lobe Current Visit: Yes Status: Acute Priority: High Code(s): C34.31 - MALIGNANT NEOPLASM OF LOWER LOBE, RIGHT BRONCHUS OR LUNG SNOMED Code(s): 252348259 (3) SVC syndrome Current Visit: Yes Status: Acute Priority: High Code(s): I87.1 - COMPRESSION OF VEIN SNOMED Code(s): 63231097 Plan: Dr. Vergara discussed with the patient new diagnosis of small cell lung cancer. He discussed treatment options which are limited to chemotherapy and radiation. Treatment course would be based on limited stage disease versus extensive stage disease, also patient's symptoms. Discussed prognosis with and without treatment based on limited versus extensive disease. All of patient's questions that she had at this time were answered. MRI of the brain and spine ordered already to evaluate symptoms, concern for metastatic disease. Staging PET scan will be scheduled outpatient by Dr. Vergara's office. Patient will follow-up with Physicians as directed. Follow up Dr. Vergara for Medical Oncology Doctor attests:I have performed a history and physical exam of this pt, discussed with dictator. I agree with dictated note, documented as a scribe.
--- NOTE | 2017-12-14 18:35 | MR ---
EXAMINATION TYPE: MR brain wo/w con DATE OF EXAM: 12/14/2017 COMPARISON: CT brain 12/07/2017 and lumbar spine MR same date HISTORY: Headaches, new cancer diagnosis TECHNIQUE: Multiplanar, multisequence images of the brain and brainstem is performed without and with IV contras t, utilizing 7.5 mL intravenous Gadavist . FINDINGS: Diffusion weighted images demonstrate no evidence of a recent infarct or other diffusion ab normality. There is no extra-axial fluid collection or significant white matter signal abnormality. The ventricular system and cisternal spaces are normal in size and appearance. The brain volume is age appropriate. There is somewhat diffuse dural enhancement. Midline structures demonstrate normal morphology. The craniocervical junction appears within normal limits. Post contrast images demonstrate no abnormal enhancement. The dural venous sinuses appear pa tent. The visualized sinuses are clear and the globes are intact. Bone marrow signal in the calvarium appears abnormal as on MRI lumbar spine same date. IMPRESSION: Dural enhancement is indeterminate, bone marrow signal within the calvarium could be vinicio cative of tumor infiltration, consider bone scan.
[2017-12-14] MEDS: MORPHINE SULFATE 2 MG/ML SYRINGE IVP PRN (21:37)
[2017-12-14] MEDS: POLYETHYLENE GLYCOL 3350 17 GM POWD.PACK PO SCH (21:51)
[2017-12-15] MEDS: HYDROcodone/APAP 5-325MG 1 EACH TAB PO PRN (00:46)
[2017-12-15] MEDS: MORPHINE SULFATE 2 MG/ML SYRINGE IVP PRN (06:25)
[2017-12-15] MEDS: cefTRIAXone IN SWFI 1,000 MG/10 ML SYRINGE IVP SCH (06:27)
[2017-12-15] MEDS: ALPRAZolam 0.25 MG TAB PO PRN (06:43)
[2017-12-15] MEDS: IPRATROPIUM-ALBUTEROL 3 ML NEB INHALATION PRN ×2 (07:56→19:54)
[2017-12-15] MEDS: predniSONE 10 MG TAB PO SCH (08:10)
[2017-12-15] MEDS: DOXYCYCLINE 100 MG in SODIUM CHLORIDE 0.9% 100 ML IVPB SCH ×2 (08:10→19:42)
[2017-12-15] MEDS: FAMOTIDINE 20 MG TAB PO SCH ×2 (08:11→19:43)
[2017-12-15] MEDS: DOCUSATE 100 MG CAP PO SCH ×2 (08:11→19:43)
[2017-12-15] MEDS: HEPARIN SODIUM,PORCINE 5,000 UNIT/ML 1 ML VIAL SQ SCH ×2 (08:11→19:43)
[2017-12-15] MEDS: amLODIPine 10 MG TAB PO SCH (08:11)
[2017-12-15] MEDS: METOPROLOL TARTRATE 25 MG TAB PO SCH ×2 (08:12→19:43)
[2017-12-15] MEDS: cloNIDine HCL 0.1 MG TAB PO SCH ×3 (08:12→22:08)
[2017-12-15] MEDS: IBUPROFEN 600 MG TAB PO SCH ×3 (08:14→19:44)
[2017-12-15 08:26] LABS: Anion Gap 10 mmol/L; Blood Urea Nitrogen 15 mg/dL (7-17); Calcium 9.3 mg/dL (8.4-10.2); Carbon Dioxide 31 mmol/L (22-30); Chloride 92 mmol/L (98-107); Glucose 97 mg/dL (74-99); Potassium 4.6 mmol/L (3.5-5.1); Sodium 133 mmol/L (137-145)
[2017-12-15 08:55] LABS: HCT 41.6 % (34.0-46.0); HGB 14.2 gm/dL (11.4-16.0); MCH 32.3 pg (25.0-35.0); MCHC 34.1 g/dL (31.0-37.0); MCV 94.8 fL (80.0-100.0); Mean Platelet Volume 7.7; Platelet Count 127 k/uL (150-450); RBC 4.39 m/uL (3.80-5.40); RDW 13.1 % (11.5-15.5)
--- NOTE | 2017-12-15 09:19 | P.PN ---
Subjective Progress Note Date: 12/15/17 Principal diagnosis: small cell lung cancer Pt seen in f/u, the pain in her low back continues to be uncontrolled, it exacerbates without any identifiable aggravating factor, she continues to have persistent headache and she has noticed "spasms" that sends visible waves across the skin on her abdomen, "looks and feels like an alien is there trying to get out". She denies nausea, vomiting, diarrhea or constipation, no incontinence. Objective - Vital Signs Vital signs: Vital Signs Temp 98.3 F 12/15/17 07:00 Pulse 99 12/15/17 08:05 Resp 16 12/15/17 07:00 BP 152/75 12/15/17 07:00 Pulse Ox 95 12/15/17 07:55 Intake & Output 12/14/17 12/15/17 12/15/17 18:59 06:59 18:59 Intake Total 480 Balance 480 Weight 78.925 kg Intake: Oral 480 Other: Voiding Method Toilet Toilet # Voids 2 2 - Constitutional General appearance: Present: average body habitus, cooperative, mild distress - EENT Eyes: Present: anicteric sclerae, EOMI, normal appearance - Neck Details: supraclavicular swelling noted bilaterally, R>L, unable to palpate definitive lymph nodes - Respiratory Respiratory: bilateral: CTA, diminished - Cardiovascular Rhythm: regular Heart sounds: normal: S1, S2 - Peripheral edema leg Peripheral Edema: bilateral: Trace - Gastrointestinal General gastrointestinal: Present: normal bowel sounds, soft, tenderness Localized gastrointestinal: tender: RUQ, epigastric periumbilical - Integumentary Integumentary: Present: normal - Neurologic Neurologic: Present: CNII-XII intact - Musculoskeletal Musculoskeletal: Present: strength equal bilaterally - Psychiatric Psychiatric: Present: A&O x's 3, appropriate affect, intact judgment & insight - Labs CBC & Chem 7: 12/15/17 07:16 12/15/17 07:16 Labs: Abnormal Lab Results - Last 24 Hours (Table) 12/15/17 12/15/17 Range/Units 07:16 07:16 WBC 20.0 H (3.8-10.6) k/uL Plt Count 127 L (150-450) k/uL Sodium 133 L (137-145) mmol/L Chloride 92 L (98-107) mmol/L Carbon Dioxide 31 H (22-30) mmol/L - Imaging and Cardiology MRI - head: report reviewed MRI spine, report reviewed Assessment and Plan (1) Small cell lung cancer, right middle lobe Current Visit: Yes Status: Acute Priority: High Code(s): C34.2 - MALIGNANT NEOPLASM OF MIDDLE LOBE, BRONCHUS OR LUNG SNOMED Code(s): 398284319 (2) Small cell lung cancer, right lower lobe Current Visit: Yes Status: Acute Priority: High Code(s): C34.31 - MALIGNANT NEOPLASM OF LOWER LOBE, RIGHT BRONCHUS OR LUNG SNOMED Code(s): 629294843 (3) SVC syndrome Current Visit: Yes Status: Acute Priority: High Code(s): I87.1 - COMPRESSION OF VEIN SNOMED Code(s): 43777618 Plan: Reviewed negative MRI of the brain and abnormal vertebra appearance (diffusely abnorma, like marrow infiltration vs a visible lesion or mass). Due to symptoms (persistent headache and pain that is difficult to manage and characterize) LP has been ordered. Pt is aware of concerns and willing to proceed, orders have been placed for the same. Did discuss case with Rad/Onc. Dr. Garcia is suspecting zay mets and is planning for radiation for palliation of pain. They will communicate concerning findings and plan of care to pt later today. Some changes made to pain management regimen, cont to evaluate effectiveness. Pt aware that pain may not be able to be completely resolved so, goal is to maximize function. She verbalized understanding. Pt will be checked to see if she is a candidate for home O2. She will require nebulizer for respiratory medication administration as prescribed by Pulmonary
--- NOTE | 2017-12-15 10:31 | MR ---
EXAMINATION TYPE: MR lspine/sacrum wo/w con DATE OF EXAM: 12/14/2017 COMPARISON: CT lumbar spine 12/07/2017 HISTORY: low back pain into legs, new cancer diagnosis TECHNIQUE: Multiplanar, multisequence images of the lumbar spine and sacrum is performed without and with IV con trast, utilizing 7.5 mL intravenous Gadavist FINDINGS: Sagittal images of the lumbar spine show vertebral body heights and alignment to appear sat isfactory. The intervertebral discs demonstrate normal heights and hydration. The conus medullaris i s normal in position and signal. The bone marrow signal intensity is low on T1 and T2-weighted seque nces suggesting marrow infiltration. There is endplate discogenic marrow signal change associated los s of disc height and signal at L3-4, L4-5 and L5-S1. Following contrast administration there is patch y enhancement at multiple vertebral body levels. Axial images show mild broad-based posterior disc bulge L5-S1 possibly contacting the proximal S1 ner ve roots. Posterior broad-based disc bulge at L4-5 causes minimal anterior mass effect on the thecal sac. No significant neural foraminal encroachment or spinal stenosis. Sacrum also shows abnormal marrow signal which extends throughout the pelvis, patchy enhancement is n oted following contrast administration, IMPRESSION: Abnormal marrow signal as described, marrow infiltration with tumor is suspected. Conside r bone scan correlation.
[2017-12-15 11:53] LABS: Band Neutrophils % 6 %; Metamyelocytes % 1 %; Myelocytes % 2 %; Neutrophils % (M) 65 %; Nucleated Red Blood Cells 0 /100 WBC (0-0); Total Cells Counted 200
[2017-12-15] MEDS ORDERED: HYDROmorphone 1 MG/ML 1 ML SYRINGE IVP PRN (14:05)
[2017-12-15 14:34] LABS: Prothrombin Time 10.2 sec (9.0-12.0)
[2017-12-15 14:44] LABS: Partial Thromboplastin Time 20.5 sec (22.0-30.0)
[2017-12-15 15:59] LABS: Appearance,CSF Clear
[2017-12-15 16:00] LABS: CSF Tube Number 4; CSF Tube Volume 2.5
--- NOTE | 2017-12-15 16:01 | P.PN ---
Subjective Progress Note Date: 12/15/17 Principal diagnosis: Right hilar lung mass, highly suggestive of primary bronchogenic carcinoma, status post biopsy, results are pending On today's evaluation, the patient's main complaint is back pain radiating to the right lower extremity. The CAT scan of the lumbosacral spine showed L5-S1 disease with disc bulge and the patient may experiencing some sciatica. No evidence of any metastatic involvement or compression fractures or cord pathology based on the CAT scan of the lumbosacral spine. Meanwhile, the patient underwent her bronchoscopy. Endobronchial abnormalities were noted in the right middle lobe and superior segment of the right lower lobe and biopsies were obtained. Results are still pending for now. Almost has a stable. Minimal amount of bloody respiratory secretions related to the procedure and the biopsies. She is taking [place] for pain control. She was also started on a combination of bronchodilators and systemic steroids regarding her COPD. On today's evaluation of 12/11/2017, the patient is improved in terms of her back pain. She was started on steroids yesterday and that helped her with her pain control. She is not having any respiratory difficulties. No cough or sputum production. No hemoptysis. No other complaints otherwise. Biopsies were done and the results are not available at this point in time and this will be discussed at a later stage on outpatient basis. Reevaluated today on 12/12/2017, patient is feeling better, less pain, less shortness of breath, remains on bronchodilators and steroids, cytology and pathology from surgical specimen from her bronchial biopsies are pending. Patient was told by Dr. Lundy that the bronchoscopic findings are highly suggestive of endobronchial tumor and we are waiting for the final pathology report to become available. In the meantime the patient could be considered for discharge planning, she will need to have on outpatient basis a PET scan, and follow-up with Dr. Lundy. On 12/13/2017 patient seen again on oncology floor. Having significant amount of back pain, and pain underneath her bilateral rib cages. Her breathing seems to be better, room air pulse ox is 93%, she is afebrile, slightly tachycardic at times, with a heart rate up to 106 BPM, is noted to be hypertensive, and her systolic blood pressures have been ranging from 150-1 90 mmHg, with diastolic between 80-100 mmHg. Her right hilar lung mass pathology report is still pending, the results of the biopsies are not available. Nonproductive cough, lung sounds positive for fine crackles over left posterior lower lobe, clear on the right, patient is on empiric antibiotics in the form of Rocephin and doxycycline, bronco wash cultures and fungal cultures remain negative to date. On today's blood work WBC is up to 23.9, hemoglobin is 14.9, sodium is 129, potassium is 4.6, chloride is 90, CO2 31, BUN is 15, creatinine 0.50. On 12/14/2017 patient seen in follow-up on oncology floor. She was seen by radiation oncology and medical oncology, she will be going for a CT of abdomen and pelvis today, and she will have MRI of the brain rule out metastatic disease. Vital signs remain stable, room air pulse ox is 93%, she is afebrile, her pain under her bilateral rib cage and in her back still remains, although seems to be slightly improved. Patient reports breathing a bit better, and this is probably related to better pain control. Lung sounds are positive for minimal scattered wheezes, diminished breath sounds noted. His labs were reviewed, Maryuri BC is trending down, down to 18.4, sodium is 129, potassium is 4.0, chloride is 93, BUN 17, creatinine 0.56. She remains on empiric antibiotics in the form of Rocephin, nebulized bronchodilator's, and oral steroids. On 12/15/2017 patient seen in follow-up on oncology floor. Last night patient had a severe bout of back pain, patient has a persistent headache. MRI brain and spine was done on 12/14/2017 and there is a concern for metastatic disease. Patient is scheduled to undergo a lumbar puncture today. From pulmonary standpoint her breathing seems to be stable, although severe bouts of pain in her back, and long the bilateral rib margins still limiting her deep inspiration at times. Lung sounds are positive for a few wheezes on the right, no wheezing on the left. Walking outside on room air was 92%, and the patient does not qualify for home oxygen. Obese set up with the nebulizer with treatments upon discharge. And the patient is scheduled to have her first radiation treatment sometime today. Objective - Vital Signs Vital signs: Vital Signs Temp 98.3 F 12/15/17 07:00 Pulse 99 12/15/17 08:05 Resp 16 12/15/17 07:00 BP 152/75 12/15/17 07:00 Pulse Ox 95 12/15/17 09:54 Intake & Output 12/14/17 12/15/17 12/15/17 18:59 06:59 18:59 Intake Total 480 Balance 480 Weight 78.925 kg Intake: Oral 480 Other: Voiding Method Toilet Toilet Toilet # Voids 2 2 - Exam Physical Exam: Revealed a 52-year-old female in no distress. Head: Atraumatic, normocephalic. HEENT:[Neck is supple.] [No neck masses.] [No thyromegaly.] [No JVD.] Chest: [Diminished breath sounds at the bases, a few limited wheezes on the right Cardiac Exam: [Normal S1 and S2, no S3 gallop, no murmur.] Abdomen: [Soft, nontender, no megaly, no rebound, no guarding, normal bowel sounds.] Extremities: [No clubbing, no edema, no cyanosis.] Neurological Exam: [No focal neurologic deficit.] Skin: No rashes. Lymphatics: No lymphadenopathy. - Labs CBC & Chem 7: 12/15/17 07:16 12/15/17 07:16 Labs: Abnormal Lab Results - Last 24 Hours (Table) 12/15/17 12/15/17 Range/Units 07:16 07:16 WBC 20.0 H (3.8-10.6) k/uL Plt Count 127 L (150-450) k/uL Neutrophils # (Manual) 14.20 H (1.3-7.7) k/uL Lymphocytes # (Manual) 5.00 H (1.0-4.8) k/uL Metamyelocytes # (Man) 0.20 H (0) k/uL Myelocytes # (Manual) 0.40 H (0) k/uL Sodium 133 L (137-145) mmol/L Chloride 92 L (98-107) mmol/L Carbon Dioxide 31 H (22-30) mmol/L Assessment and Plan Plan: Assessment: 1 right hilar mass with paratracheal lymphadenopathy, highly suggestive underlying primary bronchogenic carcinoma,. The biopsy results of the posterior right lower lobe transbronchial biopsy was positive for malignant neoplasm with marked crush artifact consistent with primary pulmonary small cell carcinoma. Right middle lobe was positive for high-grade malignant epithelial neoplasm with severe crush artifact consistent with small cell carcinoma of the lung. Fine-needle aspiration of right middle and right lower lobe cytology was positive for high-grade neoplasm. 2 severe back pain and persistent headaches, MRI of the brain and spine are concerning for metastatic disease 3 obesity 4 [id number] smoking history 5 shortness of breath, exertional likely underlying COPD and underlying small cell carcinoma of the lung 6 hypertension 7 IBS 8 chronic back pain with lumbar disc disease 9 COPD Plan : Patient will be receiving her first radiation treatment this afternoon, and she is also undergoing LP for concerns of metastatic malignancy, as evidenced on MRI of her brain and spine. She will be set up with the home nebulizer machine , and nebulizer treatments. We'll continue with current medical treatment right now I performed a history & physical examination of the patient and discussed their management with my nurse practitioner, Mony Stallworth. I reviewed the nurse practitioner's note and agree with the documented findings and plan of care. Lung sounds are positive for for a few limited wheezes. The findings and the impression was discussed with the patient. I attest to the documentation by the nurse practitioner.
[2017-12-15 16:16] LABS: Glucose,CSF 79 mg/dL (40-70)
--- NOTE | 2017-12-15 17:02 | FL ---
PROCEDURE: Lumbar puncture. DATE: 12/15/2017 CLINICAL HISTORY: 52-year-old female with new diagnosis of small cell lung cancer, neuropathic pain, requesting CSF cytology. COMPLICATIONS: None SEDATION: 0.5 mg Dilaudid administered by nursing personnel. The patient and the patient's vital signs were mon itored by qualified independent radiology personnel. TECHNIQUE: The procedure and potential risks were explained to patient and an informed consent was obtained with teach back. Site and side was verified. A time out was performed. The patient was placed prone on the fluoroscopy table and the L3-L4 level was localized and the skin was marked and was prepped and draped in the usual sterile fashion. Lidocaine was used for local anesthesia. Utilizing fluoroscopic guidance a 22-gauge spinal needle was placed through the skin and into the subarachnoid space. Approximately 8 mL of clear, colorless cerebral spinal fluid was obtained. The patient tolerated the procedure well and was sent back to the inpatient room in satisfactory cond ition. The fluid was sent to the lab for analysis. The estimated blood loss was minimal. The patient's condition was unchanged following the procedure. Fluoroscopy time: 12 seconds Total images: 2 IMPRESSION: Successful accumulation of 8 mL of clear CSF. Cytology and other laboratory analysis pending.
[2017-12-15 17:29] LABS: Nucleated Cells, CSF 2 u/L (0-5); Red Blood Cell,CSF 1 u/L (0-10)
[2017-12-15] MEDS: POLYETHYLENE GLYCOL 3350 17 GM POWD.PACK PO SCH (19:44)
[2017-12-15] MEDS: oxyCODONE-APAP 5-325MG 1 EACH TAB PO PRN (19:45)
[2017-12-16] MEDS ORDERED: AMPICILLIN-SULBACTAM 3 GM in SODIUM CHLORIDE 0.9% 100 ML IVPB STA (00:30)
[2017-12-16] MEDS ORDERED: oxyCODONE-APAP 5-325MG 1 EACH TAB ONE (03:33)
[2017-12-16] MEDS: cloNIDine HCL 0.1 MG TAB PO SCH ×3 (05:58→22:33)
[2017-12-16] MEDS: cefTRIAXone IN SWFI 1,000 MG/10 ML SYRINGE IVP SCH (05:58)
[2017-12-16] MEDS: IPRATROPIUM-ALBUTEROL 3 ML NEB INHALATION PRN ×3 (07:21→17:29)
[2017-12-16] MEDS: DOXYCYCLINE 100 MG in SODIUM CHLORIDE 0.9% 100 ML IVPB SCH ×2 (07:47→20:05)
[2017-12-16] MEDS: amLODIPine 10 MG TAB PO SCH (07:47)
[2017-12-16] MEDS: METOPROLOL TARTRATE 25 MG TAB PO SCH ×2 (07:47→20:05)
[2017-12-16] MEDS: DOCUSATE 100 MG CAP PO SCH ×2 (07:47→20:05)
[2017-12-16] MEDS: FAMOTIDINE 20 MG TAB PO SCH (07:47)
[2017-12-16] MEDS: predniSONE 10 MG TAB PO SCH (07:48)
[2017-12-16] MEDS: HEPARIN SODIUM,PORCINE 5,000 UNIT/ML 1 ML VIAL SQ SCH ×2 (07:48→20:05)
[2017-12-16] MEDS: IBUPROFEN 600 MG TAB PO SCH ×3 (07:50→22:26)
[2017-12-16 07:51] LABS: HCT 37.4 % (34.0-46.0); HGB 12.8 gm/dL (11.4-16.0); MCH 32.4 pg (25.0-35.0); MCHC 34.3 g/dL (31.0-37.0); MCV 94.4 fL (80.0-100.0); Mean Platelet Volume 7.8; RBC 3.96 m/uL (3.80-5.40); RDW 12.8 % (11.5-15.5); WBC 12.5 k/uL (3.8-10.6)
[2017-12-16] MEDS: oxyCODONE-APAP 5-325MG 1 EACH TAB PO PRN ×3 (07:51→15:42)
[2017-12-16 07:55] LABS: Anion Gap 9 mmol/L; Blood Urea Nitrogen 14 mg/dL (7-17); Calcium 9.7 mg/dL (8.4-10.2); Carbon Dioxide 32 mmol/L (22-30); Chloride 93 mmol/L (98-107); Glucose 144 mg/dL (74-99); Potassium 4.5 mmol/L (3.5-5.1); Sodium 134 mmol/L (137-145)
[2017-12-16 09:28] LABS: Platelet Count 81 k/uL (150-450)
[2017-12-16 09:31] LABS: Band Neutrophils % 6 %; Eosinophils # (M) 0.13 k/uL (0-0.7); Lymphocytes # (M) 2.13 k/uL (1.0-4.8); Monocytes # (M) 0.63 k/uL (0-1.0); Myelocytes # (M) 0.13 k/uL (0); Myelocytes % 1 %; Neutrophils % (M) 71 %; Nucleated Red Blood Cells 0 /100 WBC (0-0); Total Cells Counted 200
--- NOTE | 2017-12-16 11:13 | P.PN ---
Subjective Progress Note Date: 12/15/17 Principal diagnosis: Right hilar lung mass highly suggestive of primary bronchogenic carcinoma status post biopsy 12/15/2017 Patient seen in follow-up on oncology floor. Last night patient had a severe bout of back pain, patient has a persistent headache. MRI brain and spine was done on 12/14/2017 and there is a concern for metastatic disease. Patient is scheduled to undergo a lumbar puncture today. From pulmonary standpoint her breathing seems to be stable, although severe bouts of pain in her back, and long the bilateral rib margins still limiting her deep inspiration at times. Lung sounds are positive for a few wheezes on the right, no wheezing on the left. Walking outside on room air was 92%, and the patient does not qualify for home oxygen. Obese set up with the nebulizer with treatments upon discharge. And the patient is scheduled to have her first radiation treatment sometime today. Objective - Vital Signs Vital signs: Vital Signs Temp 98.3 F 12/15/17 07:00 Pulse 99 12/15/17 08:05 Resp 16 12/15/17 07:00 BP 152/75 12/15/17 07:00 Pulse Ox 95 12/15/17 09:54 Intake & Output 12/14/17 12/15/17 12/15/17 18:59 06:59 18:59 Intake Total 480 Balance 480 Weight 78.925 kg Intake: Oral 480 Other: Voiding Method Toilet Toilet Toilet # Voids 2 2 - Exam - Constitutional General appearance: Present: average body habitus, cooperative, no acute distress - EENT Eyes: Present: anicteric sclerae, EOMI, PERRLA, normal appearance ENT: Present: hearing grossly normal, normal oropharynx Ears: bilateral: normal - Neck Neck: Present: normal ROM. Absent: lymphadenopathy, rigidity, thyromegaly Carotids: negative: bruit present Thyroid: bilateral: normal size, negative: enlarged, nodule - Respiratory Respiratory: bilateral: CTA, negative: rales, rhonchi, wheezing - Cardiovascular Rhythm: regular Heart sounds: normal: S1, S2 Abnormal Heart Sounds: Absent: systolic murmur, diastolic murmur - Gastrointestinal General gastrointestinal: Present: normal bowel sounds, soft. Absent: distended , organomegaly, tenderness - Genitourinary Genitourinary Comment(s): deferred - Integumentary Integumentary: Present: normal turgor. Absent: jaundiced, rash, ulcer - Neurologic Neurologic: Present: CNII-XII intact. Absent: focal deficits - Musculoskeletal Musculoskeletal: Present: gait normal, strength equal bilaterally - Psychiatric Psychiatric: Present: A&O x's 3, appropriate affect, intact judgment & insight - Labs CBC & Chem 7: 12/16/17 06:50 12/16/17 06:50 Labs: Abnormal Lab Results - Last 24 Hours (Table) 12/15/17 12/15/17 Range/Units 07:16 07:16 WBC 20.0 H (3.8-10.6) k/uL Plt Count 127 L (150-450) k/uL Sodium 133 L (137-145) mmol/L Chloride 92 L (98-107) mmol/L Carbon Dioxide 31 H (22-30) mmol/L Assessment and Plan Assessment: 1 right hilar mass with paratracheal lymphadenopathy, highly suggestive underlying primary bronchogenic carcinoma,. - The biopsy results of the posterior right lower lobe transbronchial biopsy was positive for malignant neoplasm with marked crush artifact consistent with primary pulmonary small cell carcinoma. Right middle lobe was positive for high -grade malignant epithelial neoplasm with severe crush artifact consistent with small cell carcinoma of the lung. Fine-needle aspiration of right middle and right lower lobe cytology was positive for high-grade neoplasm. - Patient is being evaluated by radiation therapy and possibly be receiving her first radiation treatment this afternoon - LP is suggested for concern of metastatic malignancy as evidenced on MRI of her brain and spine 2 severe back pain and persistent headaches, MRI of the brain and spine are concerning for metastatic disease 3 obesity 4 [id number] smoking history 5 COPD /Shortness of breath, - exertional likely underlying COPD and underlying small cell carcinoma of the lung - Patient will be set up with home nebulizer machine and nose and nebulizer treatments per pulmonary recommendations 6 hypertension; fairly controlled on current medications 7 IBS 8 chronic back pain with lumbar disc disease Time with Patient: Greater than 30
[2017-12-16] MEDS: ALPRAZolam 0.25 MG TAB PO PRN (11:18)
--- NOTE | 2017-12-16 14:05 | P.PN ---
Subjective Progress Note Date: 12/16/17 Principal diagnosis: Small Cell Carcinoma HPI: The patient is a 52-year-old female with a [id number] smoking history, who has quit within the past 10 months. She was hospitalized secondary to progressive low back pain and dyspnea on exertion. The patient's oncologic history began within the past 2-3 weeks. She had developed a severe pain in her low back, which radiated to both legs. She reports that this pain was constant, and would keep her up at night. The pain could be up to 9 out of 10, and this did not have any significant exacerbating factors. The patient did not notice this pain being any worse with ambulation. At approximately the same time, the patient was noticing increased dyspnea on exertion. Over the past few weeks, even short walks would be significantly more difficult than they were in the past. She presented to the hospital at [facility] on December 07, 2017. She was having headache at this time as well. A CT scan of the brain was unremarkable. She underwent a CT scan of the lumbar spine without contrast. This revealed disc bulging at L3 through 5, but no significant central canal stenosis. No clear evidence of metastatic lesions either. A CT scan PE protocol was also performed. This revealed a 4.8 x 3.6 cm right hilar mass with partial obstruction of the right upper and lower lobes. There was also a 2.6 cm consolidation within the right lower lobe which was considered possibly a small pneumonia. The patient was subsequently transferred to [facility]. She was evaluated by pulmonology, and had bronchoscopy performed on December 09. Endobronchial abnormalities were seen first at the secondary jessica between the right upper and right middle lobes. Within the right middle lobe bronchus and right lower lobe bronchus there were further endobronchial abnormalities resulting in 50% narrowing of both. Biopsy of these areas revealed small cell lung cancer. Todays Assessment 12/16/17 - Status Post Lumbar Puncture. Pain is still severe, no relief with percocet or morphine. Dilaudid some relief. Objective - Vital Signs Vital signs: Vital Signs Temp 98.0 F 12/16/17 05:00 Pulse 80 12/16/17 11:01 Resp 16 12/16/17 05:00 BP 174/92 12/16/17 05:53 Pulse Ox 95 12/16/17 05:00 Intake & Output 12/15/17 12/16/17 12/16/17 18:59 06:59 18:59 Intake Total 100 690 Balance 100 690 Intake: Intake, IV Titration 100 100 Amount Doxycycline 100 mg In 100 100 Sodium Chloride 0.9% 100 ml @ 66.67 mls/hr IVPB Q12HR [facility] Rx#:[id number] Oral 590 Other: Voiding Method Toilet Toilet Toilet # Voids 4 - Constitutional General appearance: Present: cooperative, no acute distress - EENT Eyes: Present: EOMI, PERRLA, poor dentition ENT: Present: NA/AT, normal oropharynx - Neck Details: supple, midline Neck: Present: normal ROM - Respiratory Respiratory: bilateral: diminished (bibasilar) - Cardiovascular Rhythm: regular Heart sounds: normal: S1, S2 - Gastrointestinal General gastrointestinal: Present: normal bowel sounds, soft - Integumentary Integumentary: Present: pale - Neurologic Neurologic Comment(s): No focal Defects Neurologic: Present: CNII-XII intact - Musculoskeletal Musculoskeletal: Present: gait normal - Psychiatric Psychiatric: Present: A&O x's 3, appropriate affect, intact judgment & insight - Labs CBC & Chem 7: 12/16/17 06:50 12/16/17 06:50 Labs: Abnormal Lab Results - Last 24 Hours (Table) 12/15/17 12/15/17 12/16/17 Range/Units 13:49 15:04 06:50 WBC 12.5 H (3.8-10.6) k/uL Plt Count 81 L (150-450) k/uL Neutrophils # (Manual) 9.60 H (1.3-7.7) k/uL Myelocytes # (Manual) 0.13 H (0) k/uL APTT 20.5 L (22.0-30.0) sec Sodium (137-145) mmol/L Chloride (98-107) mmol/L Carbon Dioxide (22-30) mmol/L Glucose (74-99) mg/dL CSF Glucose 79 H (40-70) mg/dL 12/16/17 Range/Units 06:50 WBC (3.8-10.6) k/uL Plt Count (150-450) k/uL Neutrophils # (Manual) (1.3-7.7) k/uL Myelocytes # (Manual) (0) k/uL APTT (22.0-30.0) sec Sodium 134 L (137-145) mmol/L Chloride 93 L (98-107) mmol/L Carbon Dioxide 32 H (22-30) mmol/L Glucose 144 H (74-99) mg/dL CSF Glucose (40-70) mg/dL Assessment and Plan Plan: Assessment and Recommendations: 1. Extensive Stage Small Cell Carcinoma of the Lung - Radiation for palliative treatment and plan for Chemotherapy after radiation is completed - Was planning on a PET at discharge, although with already know extensive stage disease obtaining a CT abdomen and pelvis while inpatient is resonable. Patient expressed concern about waiting for PET scan and driving back and forth when she lives a distance away. No need for bone scan. 2. SVC Syndrome - Continue Prednisone and PPI (changed H2 to PPI, symptoms of acid reflux and steroids) 3. Persistent Lower Back Pain - Likely Secondary to underlying metastatic disease - Radiation Oncology following - Status Post Simulation and 1 of 5 treatment today for palliative Radiation - Continue with Opioid Pain relief, will change symptom management to a long acting fentanyl and PRN Dilaudid, I have also added a daily senna with her colace for risk of narcotic induced constipation. With likely bone mets supportive palliative pain management is resonable. - The addition of a dexamethasone at discharge may help for malignant bone pain 4. Persistent Headache - MRI Negative for identifiable Metastatic Disease - Awaiting Lumbar Puncture 5. COPD/Shortness of Breath: - Pulmonary following and assisting for set up of home nebulizer and Oxygen 6. Anxiety and Depression: - She overall is accepting diagnoses, she will continue on her anti-anxiety and anti-depression medications and follow with Psychiatry to help Thank you for allowing us to participate in patients care. Melvi Sim NP
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
[2017-12-16] MEDS ORDERED: HYDROmorphone 1 MG/ML 1 ML SYRINGE IVP STA (15:22)
[2017-12-16] MEDS: CYCLOBENZAPRINE 10 MG TAB PO PRN (15:42)
[2017-12-16] MEDS ORDERED: HYDROmorphone 1 MG/ML 1 ML SYRINGE IM PRN (17:08)
[2017-12-16] MEDS ORDERED: SENNOSIDES 8.6 MG TAB PO PRN (17:10)
[2017-12-16] MEDS: PANTOPRAZOLE 40 MG TABLET PO SCH (18:10)
[2017-12-16] MEDS: POLYETHYLENE GLYCOL 3350 17 GM POWD.PACK PO SCH (20:05)
[2017-12-16] MEDS: oxyCODONE-APAP 10-325MG 1 EACH TAB PO PRN (22:25)
[2017-12-17] MEDS: MELATONIN 5 MG TABLET PO PRN (00:50)
[2017-12-17] MEDS: LORazepam 1 MG TAB PO PRN (04:12)
[2017-12-17] MEDS: cloNIDine HCL 0.1 MG TAB PO SCH ×3 (06:40→23:06)
[2017-12-17] MEDS: oxyCODONE-APAP 10-325MG 1 EACH TAB PO PRN ×3 (06:40→19:51)
[2017-12-17] MEDS: cefTRIAXone IN SWFI 1,000 MG/10 ML SYRINGE IVP SCH (06:42)
[2017-12-17 08:02] LABS: Basophils # (A) 0.1 k/uL (0-0.2); Basophils % (A) 0 %; Eosinophils # (A) 0.2 k/uL (0-0.7); Eosinophils % (A) 1 %; HCT 37.8 % (34.0-46.0); HGB 12.8 gm/dL (11.4-16.0); Lymphocytes # (A) 2.9 k/uL (1.0-4.8); Lymphocytes % (A) 15 %; MCH 32.2 pg (25.0-35.0); MCHC 33.8 g/dL (31.0-37.0); MCV 95.1 fL (80.0-100.0); Mean Platelet Volume 7.7; Monocytes # (A) 0.8 k/uL (0-1.0); Monocytes % (A) 4 %; Neutrophils # (A) 14.7 k/uL (1.3-7.7); Neutrophils % (A) 78 %; RBC 3.97 m/uL (3.80-5.40); RDW 12.8 % (11.5-15.5); WBC 18.9 k/uL (3.8-10.6)
[2017-12-17 08:05] LABS: Platelet Count 76 k/uL (150-450)
[2017-12-17 08:23] LABS: Anion Gap 8 mmol/L; Blood Urea Nitrogen 16 mg/dL (7-17); Carbon Dioxide 34 mmol/L (22-30); Chloride 93 mmol/L (98-107); Glucose 132 mg/dL (74-99); Potassium 4.7 mmol/L (3.5-5.1); Sodium 135 mmol/L (137-145)
[2017-12-17] MEDS: DOCUSATE 100 MG CAP PO SCH ×2 (09:11→19:51)
[2017-12-17] MEDS: METOPROLOL TARTRATE 25 MG TAB PO SCH ×2 (09:11→19:52)
[2017-12-17] MEDS: amLODIPine 10 MG TAB PO SCH (09:11)
[2017-12-17] MEDS: predniSONE 10 MG TAB PO SCH (09:11)
[2017-12-17] MEDS: HEPARIN SODIUM,PORCINE 5,000 UNIT/ML 1 ML VIAL SQ SCH ×2 (09:11→19:52)
[2017-12-17] MEDS: ARIPiprazole 2 MG TAB PO SCH (09:11)
[2017-12-17] MEDS: PANTOPRAZOLE 40 MG TABLET PO SCH ×2 (09:11→16:23)
[2017-12-17] MEDS: DOXYCYCLINE 100 MG in SODIUM CHLORIDE 0.9% 100 ML IVPB SCH ×2 (09:12→19:53)
[2017-12-17] MEDS: IBUPROFEN 600 MG TAB PO SCH ×3 (09:14→23:07)
[2017-12-17] MEDS: IPRATROPIUM-ALBUTEROL 3 ML NEB INHALATION PRN ×3 (09:36→20:20)
[2017-12-17] MEDS: HYDROmorphone 1 MG/ML 1 ML SYRINGE IVP PRN ×3 (10:12→23:04)
--- NOTE | 2017-12-17 11:04 | P.PN ---
Subjective Progress Note Date: 12/17/17 Principal diagnosis: Right hilar lung mass highly suggestive of primary bronchogenic carcinoma status post biopsy; status post lumbar puncture 12/15/2017 Patient seen in follow-up on oncology floor. Last night patient had a severe bout of back pain, patient has a persistent headache. MRI brain and spine was done on 12/14/2017 and there is a concern for metastatic disease. Patient is scheduled to undergo a lumbar puncture today. From pulmonary standpoint her breathing seems to be stable, although severe bouts of pain in her back, and long the bilateral rib margins still limiting her deep inspiration at times. Lung sounds are positive for a few wheezes on the right, no wheezing on the left. Walking outside on room air was 92%, and the patient does not qualify for home oxygen. Obese set up with the nebulizer with treatments upon discharge. And the patient is scheduled to have her first radiation treatment sometime today. 12/16/2017 Patient is seen and evaluated in the room at bedside; family is present in the room; patient is status post lumbar puncture yesterday; relates she had her first radiation treatment this morning; complains of severe pain not relieved with Percocet or morphine; Dilaudid helps Objective - Vital Signs Vital signs: Vital Signs Temp 97.7 F 12/17/17 05:30 Pulse 84 12/17/17 09:46 Resp 17 12/17/17 05:30 BP 158/95 12/17/17 08:12 Pulse Ox 93 L 12/17/17 08:12 Intake & Output 12/16/17 12/17/17 12/17/17 18:59 06:59 18:59 Intake Total 1550 Balance 1550 Weight 78.925 kg Intake: Intake, IV Titration 100 Amount Doxycycline 100 mg In 100 Sodium Chloride 0.9% 100 ml @ 66.67 mls/hr IVPB Q12HR [facility] Rx#:[id number] Oral 1450 Other: Voiding Method Toilet Toilet Toilet # Voids 2 3 - Exam - Constitutional General appearance: Present: average body habitus, cooperative, no acute distress - EENT Eyes: Present: anicteric sclerae, EOMI, PERRLA, normal appearance ENT: Present: hearing grossly normal, normal oropharynx Ears: bilateral: normal - Neck Neck: Present: normal ROM. Absent: lymphadenopathy, rigidity, thyromegaly Carotids: negative: bruit present Thyroid: bilateral: normal size, negative: enlarged, nodule - Respiratory Respiratory: bilateral: CTA, negative: rales, rhonchi, wheezing - Cardiovascular Rhythm: regular Heart sounds: normal: S1, S2 Abnormal Heart Sounds: Absent: systolic murmur, diastolic murmur - Gastrointestinal General gastrointestinal: Present: normal bowel sounds, soft. Absent: distended , organomegaly, tenderness - Genitourinary Genitourinary Comment(s): deferred - Integumentary Integumentary: Present: normal turgor. Absent: jaundiced, rash, ulcer - Neurologic Neurologic: Present: CNII-XII intact. Absent: focal deficits - Musculoskeletal Musculoskeletal: Present: gait normal, strength equal bilaterally - Psychiatric Psychiatric: Present: A&O x's 3, appropriate affect, intact judgment & insight - Labs CBC & Chem 7: 12/17/17 07:02 12/17/17 07:02 Labs: Abnormal Lab Results - Last 24 Hours (Table) 12/17/17 12/17/17 Range/Units 07:02 07:02 WBC 18.9 H (3.8-10.6) k/uL Plt Count 76 L (150-450) k/uL Neutrophils # 14.7 H (1.3-7.7) k/uL Sodium 135 L (137-145) mmol/L Chloride 93 L (98-107) mmol/L Carbon Dioxide 34 H (22-30) mmol/L Glucose 132 H (74-99) mg/dL Assessment and Plan Assessment: 1 right hilar mass with paratracheal lymphadenopathy, highly suggestive underlying primary bronchogenic carcinoma,. - The biopsy results of the posterior right lower lobe transbronchial biopsy was positive for malignant neoplasm with marked crush artifact consistent with primary pulmonary small cell carcinoma. Right middle lobe was positive for high -grade malignant epithelial neoplasm with severe crush artifact consistent with small cell carcinoma of the lung. Fine-needle aspiration of right middle and right lower lobe cytology was positive for high-grade neoplasm. - Patient is being evaluated by radiation therapy and possibly be receiving her first radiation treatment this afternoon - LP is suggested for concern of metastatic malignancy as evidenced on MRI of her brain and spine 2 severe back pain and persistent headaches, MRI of the brain and spine are concerning for metastatic disease 3 obesity 4 [id number] smoking history 5 COPD /Shortness of breath, - exertional likely underlying COPD and underlying small cell carcinoma of the lung - Patient will be set up with home nebulizer machine and nose and nebulizer treatments per pulmonary recommendations 6 hypertension; fairly controlled on current medications 7 IBS 8 chronic back pain with lumbar disc disease Time with Patient: Greater than 30
[2017-12-17] MEDS: CYCLOBENZAPRINE 10 MG TAB PO PRN (11:32)
--- NOTE | 2017-12-17 13:35 | P.CNOR ---
History of Present Illness - [facility] Consult date: 12/17/17 Consult reason: low back pain (Patient is seen and examined at bedside. She is a pleasant 52-year-old female who is admitted for pneumonia and lung mass approximately week and a half ago. We are asked reports pain in the case regards to continued low back pain and metastasis to her spine. The patient apparently had started having pain in her lower back that radiated around her back and toward her buttocks approximately 3 weeks ago. She denied any prior back pain to that. She denied any injury. She says the pain extends now up her back to her middle back and around her abdomen. She denies any fevers. She denies any change in bowel bladder function. She denies any weakness in her legs but has difficulty moving around because of her pain across her lower back. She says her pain has not gotten any better and her low back.), back pain History of present illness: Patient is seen and examined at bedside. She is a pleasant 52-year-old female who is admitted for pneumonia and lung mass approximately week and a half ago. We are asked reports pain in the case regards to continued low back pain and metastasis to her spine. The patient apparently had started having pain in her lower back that radiated around her back and toward her buttocks approximately 3 weeks ago. She denied any prior back pain to that. She denied any injury. She says the pain extends now up her back to her middle back and around her abdomen. She denies any fevers. She denies any change in bowel bladder function. She denies any weakness in her legs but has difficulty moving around because of her pain across her lower back. She says her pain has not gotten any better and her low back. In-hospital patient has continued her workup in regards to her mass. She has had a lumbar puncture as well as bronchoscopy. 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 She has started radiation treatment for her metastasis at her spine. She continues has severe back pain and persistent headaches. She does have a [id number] history of smoking along with COPD Review of Systems As stated per HPI. She denies any nausea or vomiting. She denies any weakness in her lower extremity splint has difficulty with her legs because of her pain. She denies any changes in bowel bladder function. Past Medical History Past Medical History: No Reported History, Cancer (small cell lung cancer diagnosed 12/09/17) Additional Past Medical History / Comment(s): Obesity, bipolar disorder, hypertension, acid reflux, smoker, IBS and previous history of pneumonia History of Any Multi-Drug Resistant Organisms: None Reported Past Surgical History: Hysterectomy, Orthopedic Surgery Additional Past Surgical History / Comment(s): R knee ACL repair, cyst removal under tongue, hemorroid surgery, bronchoscopy and biopsy 12/09/17 Past Anesthesia/Blood Transfusion Reactions: No Reported Reaction Past Psychological History: Anxiety, Bipolar, Depression Smoking Status: Former smoker Past Alcohol Use History: None Reported Additional Past Alcohol Use History / Comment(s): pt states history of alcohol dependence. Occassionally drinks currently Past Drug Use History: None Reported - Past Family History Mother Family Medical History: CVA/TIA, Hypertension, Rheumatoid Arthritis (RA) Father Family Medical History: Hypertension, Myocardial Infarction ([place]), Rheumatoid Arthritis ([place]) Medications and Allergies Home Medications Medication Instructions Recorded Confirmed Type Melatonin 10 mg PO HS 12/08/17 12/08/17 History Allergies Allergy/AdvReac Type Severity Reaction Status Date / Time No Known Allergies Allergy Verified 12/09/17 11:25 Physical Examination Osteopathic Statement: *. No significant issues noted on an osteopathic structural exam other than those noted in the History and Physical/Consult. - L Spine: dermatomal strength & reflexes bilateral Strength: hip flexion: 5/5 (At her back she has a tattoo intact. There is no other skin changes. There is no rashes or ulcers. She has tenderness to palpation across her low back diffusely. She has sustained dorsal flexion plantar flexion and EHL intact. She is able stand on her toes and heels. She has pain with flexion and extension at her lower back.) Results - Labs Labs: Abnormal Lab Results - Last 24 Hours (Table) 12/17/17 12/17/17 Range/Units 07:02 07:02 WBC 18.9 H (3.8-10.6) k/uL Plt Count 76 L (150-450) k/uL Neutrophils # 14.7 H (1.3-7.7) k/uL Sodium 135 L (137-145) mmol/L Chloride 93 L (98-107) mmol/L Carbon Dioxide 34 H (22-30) mmol/L Glucose 132 H (74-99) mg/dL H & H 12/08/17 12/13/17 12/14/17 Range/Units 07:14 07:29 07:09 Hgb 13.5 14.9 13.2 (11.4-16.0) gm/dL Hct 38.4 42.9 39.1 (34.0-46.0) % 12/15/17 12/16/17 12/17/17 Range/Units 07:16 06:50 07:02 Hgb 14.2 12.8 12.8 (11.4-16.0) gm/dL Hct 41.6 37.4 37.8 (34.0-46.0) % Coagulation 12/09/17 12/15/17 Range/Units 07:10 13:49 INR 1.1 1.0 (<1.2) Result Diagrams: 12/17/17 07:02 12/17/17 07:02 - Diagnostic results Lumbar MRI with/without contrast: report reviewed, image reviewed (Lumbar MRI is reviewed here in his evidence of some bony changes within the vertebral body of L5 extending through approximately 70% of the vertebral body. It does not extend into the canal. There is some evidence of some bony changes especially at T12 and L1 and L2. These do not mention on the report. There is no significant stenosis there is no specific herniation. She has some degenerative disc disease throughout her low back particular at L4 5 L5-S1.) Assessment and Plan Assessment: Severe low back pain with likely spinal metastasis Vertebral body bone changes at L5 T12 L1 most severe at L5 No evidence of neurologic loss in her lower extremities Pulmonary hilar mass with suspected biogenic carcinoma and metastasis Plan: Severe low back pain with likely spinal metastasis Vertebral body bone changes at L5 T12 L1 most severe at L5 No evidence of neurologic loss in her lower extremities Pulmonary hilar mass with suspected biogenic carcinoma and metastasis The patient is continuing medical and radiation oncology management in terms of her pulmonary mass likely metastatic bronchogenic carcinoma. She should continue her treatment along with her radiation as this may help alleviate some of her symptoms at her spine. She is scheduled for further radiation treatments and she would like to see if this helps some of her symptoms at her back. She is also scheduled to have further scanning done we had ordered a bone scan but apparently does cancel and she is planning to get a potential scan for further evaluation they can continue workup per oncology. The patient does have evidence of bony change particularly at L5 vertebral body. There is some other bony changes at T12 and L2. There is no specific neurologic change and there is no severe neurologic compromise or evidence of stenosis at her low back. Some of the pain in her low back is likely coming from carcinoma at L5 and she could be a candidate for kyphoplasty at L5 if she is not having any further improvement. I discussed this procedure with her today. She is hopeful that the radiation well alleviate some of her symptoms and she is awaiting further workup. I would like to see if she has some benefit with a brace for her low back to see if that gives her some relief of some of her pain when she is up and about for comfort. If she is not having improvement we discussed that she could have potential kyphoplasty at a later date and she understands. We can follow her up as outpatient when she is hospital.
--- NOTE | 2017-12-17 14:57 | P.PN ---
Subjective Progress Note Date: 12/17/17 Principal diagnosis: Right hilar lung mass highly suggestive of primary bronchogenic carcinoma status post biopsy; status post lumbar puncture; had first radiation treatment yesterday 12/15/2017 Patient seen in follow-up on oncology floor. Last night patient had a severe bout of back pain, patient has a persistent headache. MRI brain and spine was done on 12/14/2017 and there is a concern for metastatic disease. Patient is scheduled to undergo a lumbar puncture today. From pulmonary standpoint her breathing seems to be stable, although severe bouts of pain in her back, and long the bilateral rib margins still limiting her deep inspiration at times. Lung sounds are positive for a few wheezes on the right, no wheezing on the left. Walking outside on room air was 92%, and the patient does not qualify for home oxygen. Obese set up with the nebulizer with treatments upon discharge. And the patient is scheduled to have her first radiation treatment sometime today. 12/16/2017 Patient is seen and evaluated in the room at bedside; family is present in the room; patient is status post lumbar puncture yesterday; relates she had her first radiation treatment this morning; complains of severe pain not relieved with Percocet or morphine; Dilaudid helps 12/17/2017 Patient continues to complain of pain; Dilaudid helps with pain; she was seen by psych service yesterday for bipolar depression; patient is to start with Abilify and recommendations I to use Ativan for anxiety while she is receiving chemotherapy; Xanax is discontinued; further adjustments in psych medications will be done post discharge and patient follows up with outpatient psychiatric care; no radiation treatment over the weekend Objective - Vital Signs Vital signs: Vital Signs Temp 97.7 F 12/17/17 05:30 Pulse 84 12/17/17 09:46 Resp 17 12/17/17 05:30 BP 158/95 12/17/17 08:12 Pulse Ox 93 L 12/17/17 08:12 Intake & Output 12/16/17 12/17/17 12/17/17 18:59 06:59 18:59 Intake Total 1550 Balance 1550 Weight 78.925 kg Intake: Intake, IV Titration 100 Amount Doxycycline 100 mg In 100 Sodium Chloride 0.9% 100 ml @ 66.67 mls/hr IVPB Q12HR [facility] Rx#:[id number] Oral 1450 Other: Voiding Method Toilet Toilet Toilet # Voids 2 3 - Exam - Constitutional General appearance: Present: average body habitus, cooperative, no acute distress - EENT Eyes: Present: anicteric sclerae, EOMI, PERRLA, normal appearance ENT: Present: hearing grossly normal, normal oropharynx Ears: bilateral: normal - Neck Neck: Present: normal ROM. Absent: lymphadenopathy, rigidity, thyromegaly Carotids: negative: bruit present Thyroid: bilateral: normal size, negative: enlarged, nodule - Respiratory Respiratory: bilateral: CTA, negative: rales, rhonchi, wheezing - Cardiovascular Rhythm: regular Heart sounds: normal: S1, S2 Abnormal Heart Sounds: Absent: systolic murmur, diastolic murmur - Gastrointestinal General gastrointestinal: Present: normal bowel sounds, soft. Absent: distended , organomegaly, tenderness - Genitourinary Genitourinary Comment(s): deferred - Integumentary Integumentary: Present: normal turgor. Absent: jaundiced, rash, ulcer - Neurologic Neurologic: Present: CNII-XII intact. Absent: focal deficits - Musculoskeletal Musculoskeletal: Present: gait normal, strength equal bilaterally - Psychiatric Psychiatric: Present: A&O x's 3, appropriate affect, intact judgment & insight - Labs CBC & Chem 7: 12/17/17 07:02 12/17/17 07:02 Labs: Abnormal Lab Results - Last 24 Hours (Table) 12/17/17 12/17/17 Range/Units 07:02 07:02 WBC 18.9 H (3.8-10.6) k/uL Plt Count 76 L (150-450) k/uL Neutrophils # 14.7 H (1.3-7.7) k/uL Sodium 135 L (137-145) mmol/L Chloride 93 L (98-107) mmol/L Carbon Dioxide 34 H (22-30) mmol/L Glucose 132 H (74-99) mg/dL Assessment and Plan Assessment: 1 right hilar mass with paratracheal lymphadenopathy, highly suggestive underlying primary bronchogenic carcinoma,. - The biopsy results of the posterior right lower lobe transbronchial biopsy was positive for malignant neoplasm with marked crush artifact consistent with primary pulmonary small cell carcinoma. Right middle lobe was positive for high -grade malignant epithelial neoplasm with severe crush artifact consistent with small cell carcinoma of the lung. Fine-needle aspiration of right middle and right lower lobe cytology was positive for high-grade neoplasm. - Patient is being evaluated by radiation therapy and possibly be receiving her first radiation treatment this afternoon - LP is suggested for concern of metastatic malignancy as evidenced on MRI of her brain and spine 2 severe back pain and persistent headaches, MRI of the brain and spine are concerning for metastatic disease 3 obesity 4 [id number] smoking history 5 COPD /Shortness of breath, - exertional likely underlying COPD and underlying small cell carcinoma of the lung - Patient will be set up with home nebulizer machine and nose and nebulizer treatments per pulmonary recommendations 6 hypertension; fairly controlled on current medications 7 IBS 8 chronic back pain with lumbar disc disease Time with Patient: Greater than 30
[2017-12-17] MEDS: POLYETHYLENE GLYCOL 3350 17 GM POWD.PACK PO SCH (19:51)
[2017-12-17] MEDS: LACTULOSE 20 GM/30 ML CUP PO PRN (23:05)
[2017-12-18] MEDS: cefTRIAXone IN SWFI 1,000 MG/10 ML SYRINGE IVP SCH (06:15)
[2017-12-18] MEDS: predniSONE 10 MG TAB PO SCH (07:48)
[2017-12-18] MEDS: METOPROLOL TARTRATE 25 MG TAB PO SCH ×2 (07:49→21:37)
[2017-12-18] MEDS: PANTOPRAZOLE 40 MG TABLET PO SCH ×2 (07:49→17:49)
[2017-12-18] MEDS: DOCUSATE 100 MG CAP PO SCH ×2 (07:49→21:36)
[2017-12-18] MEDS: cloNIDine HCL 0.1 MG TAB PO SCH ×3 (07:49→21:37)
[2017-12-18] MEDS: HEPARIN SODIUM,PORCINE 5,000 UNIT/ML 1 ML VIAL SQ SCH ×2 (07:49→21:46)
[2017-12-18] MEDS: amLODIPine 10 MG TAB PO SCH (07:49)
[2017-12-18] MEDS: ARIPiprazole 2 MG TAB PO SCH (07:49)
[2017-12-18] MEDS: DOXYCYCLINE 100 MG in SODIUM CHLORIDE 0.9% 100 ML IVPB SCH ×2 (07:49→21:44)
[2017-12-18] MEDS: oxyCODONE-APAP 10-325MG 1 EACH TAB PO PRN ×3 (07:49→21:36)
[2017-12-18] MEDS: IBUPROFEN 600 MG TAB PO SCH ×3 (07:54→21:45)
[2017-12-18] MEDS: IPRATROPIUM-ALBUTEROL 3 ML NEB INHALATION PRN ×2 (07:59→11:49)
[2017-12-18 08:01] LABS: Basophils # (A) 0.1 k/uL (0-0.2); Basophils % (A) 0 %; Eosinophils # (A) 0.1 k/uL (0-0.7); Eosinophils % (A) 1 %; HCT 36.4 % (34.0-46.0); HGB 12.2 gm/dL (11.4-16.0); Lymphocytes # (A) 2.4 k/uL (1.0-4.8); Lymphocytes % (A) 16 %; MCH 32.1 pg (25.0-35.0); MCHC 33.6 g/dL (31.0-37.0); MCV 95.5 fL (80.0-100.0); Mean Platelet Volume 8.3; Monocytes # (A) 0.7 k/uL (0-1.0); Monocytes % (A) 5 %; Neutrophils # (A) 11.7 k/uL (1.3-7.7); Neutrophils % (A) 77 %; RBC 3.82 m/uL (3.80-5.40); RDW 12.9 % (11.5-15.5); WBC 15.1 k/uL (3.8-10.6)
[2017-12-18 08:04] LABS: Platelet Count 51 k/uL (150-450)
[2017-12-18 08:16] LABS: Anion Gap 8 mmol/L; Blood Urea Nitrogen 14 mg/dL (7-17); Calcium 9.8 mg/dL (8.4-10.2); Carbon Dioxide 34 mmol/L (22-30); Chloride 96 mmol/L (98-107); Glucose 105 mg/dL (74-99); Potassium 4.3 mmol/L (3.5-5.1); Sodium 138 mmol/L (137-145)
[2017-12-18] MEDS: LACTULOSE 20 GM/30 ML CUP PO PRN (13:42)
[2017-12-18] MEDS: POLYETHYLENE GLYCOL 3350 17 GM POWD.PACK PO SCH (21:37)
--- NOTE | 2017-12-18 22:18 | PN ---
PROGRESS NOTE DATE OF SERVICE: 12/18/2017 This 52-year-old woman was admitted right perihilar mass, possibly small-cell lung cancer. The patient is started on radiation therapy. Patient also complaining of painful swelling of the left posterior back of the skull. Otherwise the patient had MRA and CT scan which is within normal limits and Hematology/Oncology is recommending either PET scan or a bone scan as an outpatient. There is no history of fever, rigors. No headache or loss of consciousness. No chest pain, no palpitation. EXAM: Alert and oriented x3. Pulse 102, blood pressure 150/90, respirations 16, temperature 97.9, pulse ox 94% on room air. HEENT: Conjunctivae normal. NECK: No jugular venous distention. CARDIOVASCULAR: S1, S2 muffled. RESPIRATORY: Breath sounds diminished in the bases. No rhonchi. No crackles. Abdomen is soft, nontender. No mass palpable. Legs are normal. NERVOUS SYSTEM: No focal deficits. LAB STUDIES: WBC 15.1, platelets 51. ASSESSMENT: 1. Right perihilar mass with paratracheal lymphadenopathy, status post bronchoscopy, biopsy with possible small-cell lung cancer on radiation therapy. 2. Pneumonia, possibly postobstructive on empiric antibiotics, possibly gram-negative. 3. Acute on chronic back pain, possible degenerative joint disease. 4. 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 5. Hyponatremia. 6. History of nicotine dependence. 7. Obesity. 8. History of bipolar. 9. Hypertension. 10.History of irritable bowel syndrome. RECOMMENDATIONS AND DISCUSSION: Continue current management and continue symptomatic treatment. Continue the current medications. Repeat labs. Continue the antibiotics. Closely follow with Radiation Oncology and Hematology/Oncology. Guarded prognosis because of multiple complex medical issues and further recommendations to follow. MMODL / IJN: [id number] /
[2017-12-19] MEDS: cefTRIAXone IN SWFI 1,000 MG/10 ML SYRINGE IVP SCH (06:28)
[2017-12-19] MEDS: oxyCODONE-APAP 10-325MG 1 EACH TAB PO PRN ×3 (06:28→18:42)
[2017-12-19] MEDS: amLODIPine 10 MG TAB PO SCH (06:33)
[2017-12-19] MEDS: cloNIDine HCL 0.1 MG TAB PO SCH (06:33)
[2017-12-19] MEDS: IPRATROPIUM-ALBUTEROL 3 ML NEB INHALATION PRN (07:41)
[2017-12-19] MEDS: IBUPROFEN 600 MG TAB PO SCH ×2 (08:29→18:41)
[2017-12-19] MEDS: PANTOPRAZOLE 40 MG TABLET PO SCH ×2 (08:29→18:44)
[2017-12-19] MEDS: ARIPiprazole 2 MG TAB PO SCH (08:32)
[2017-12-19] MEDS: HEPARIN SODIUM,PORCINE 5,000 UNIT/ML 1 ML VIAL SQ SCH ×2 (08:32→21:39)
[2017-12-19] MEDS: DOCUSATE 100 MG CAP PO SCH ×2 (08:32→21:40)
[2017-12-19] MEDS: predniSONE 10 MG TAB PO SCH (08:33)
[2017-12-19] MEDS: METOPROLOL TARTRATE 25 MG TAB PO SCH ×2 (08:33→21:40)
[2017-12-19 09:40] LABS: INR 1.1 (<1.2); Partial Thromboplastin Time 22.5 sec (22.0-30.0); Prothrombin Time 10.4 sec (9.0-12.0)
[2017-12-19 09:42] LABS: HCT 38.1 % (34.0-46.0); HGB 12.9 gm/dL (11.4-16.0); MCH 32.5 pg (25.0-35.0); MCHC 33.8 g/dL (31.0-37.0); MCV 96.3 fL (80.0-100.0); Mean Platelet Volume 8.6; RBC 3.96 m/uL (3.80-5.40); RDW 12.9 % (11.5-15.5); WBC 20.9 k/uL (3.8-10.6)
[2017-12-19 10:10] LABS: Platelet Count 76 k/uL (150-450)
[2017-12-19] MEDS: DOXYCYCLINE 100 MG in SODIUM CHLORIDE 0.9% 100 ML IVPB SCH ×2 (11:12→21:39)
--- NOTE | 2017-12-19 14:36 | P.PN ---
Progress Note - Text Progress Note Date: 12/19/17 Interval History: Patient is a 52-year-old female who was seen today in follow- up to a psychiatric consultation. Patient reports that she's begun the Abilify 2 mg in the morning and does not report any side effects and states that she doesn't know if it's been helpful yet or not but she is not feeling as overwhelmed. Patient stated that she's been talking to her children about her treatment and diagnosis and that those conversations have gone well. Patient states that she got good news today and stated that her lumbar puncture was negative for any cancer cells. Patient states that she is arranging to stay in the area while she continues to receive radiation therapy and is scheduled to have a PET scan this Tuesday. Patient reported to me that she had been sleeping better as her pain has been better controlled, she is continuing to try to eat and her appetite is getting a little better as well. She reported no complaints of suicidal thoughts and states that she is not feeling manic, and stated that her mood has been more stable. Mental Status: Appearance/Attitude: Patient was casually dressed, standing in her room in no acute distress made good eye contact and was cooperative. Behavior: Patient did not exhibit any psychomotor agitation or retardation. Speech/Language: Patient's speech was spontaneous and of more normal volume and rhythm today and she was coherent Thought Process: Patient was goal-directed there is no evidence of loose associations or flight of ideas Thought Content: Patient denied any auditory or visual hallucinations no delusions or paranoid ideation were elicited. Patient stated that she is not feeling as overwhelmed, trying to focus on one thing at a time, she states that her conversations with her children haven't gone well. Patient stated that she is sleeping better now that her pain is better controlled and that her appetite has improved slightly. Patient states that she received good news today, states she is not feeling as overwhelmed. Suicidal/Homicidal Ideation: patient denied any current suicidal or homicidal ideation Sensorium/Cognition: patient is alert and oriented to person, place, and time and her recent and remote memory are grossly intact. Mood/Affect: patient's mood was pleasant and her affect is appropriate, she stated that she wasn't feeling as overwhelmed Insight/Judgment: patient's insight and judgment are intact Assessment: patient was seen today and she did not appear as overwhelmed, her speech was not pressured and she had spoken with her children regarding her treatment, and diagnosis. Patient states that she is trying to cope with things 1 day at a time and feels that she is doing well. She states that her pain is better controlled and so her sleep has improved and her appetite remains fair. She is arranged to stay in the area to continue to receive her radiation therapy and is awaiting a PET scan this Tuesday to determine further treatment. Patient reported no side effects from the Abilify at this time. Plan: I would recommend the patient continue on Abilify 2 mg at discharge, I discussed with the patient that should her mood symptoms worsen that the Abilify could certainly be increased the next increase in dose would be to 5 mg on a daily basis. Patient will be given follow-up referrals by social work prior to her discharge. Patient at this time is not expressing any acute suicidal ideation and is not having any depressive or manic symptoms that would require an inpatient admission. Patient states that she is to be discharged today and continue her treatment as an outpatient. I will sign off the case if there are any further questions or concerns please don't hesitate to contact me
--- NOTE | 2017-12-19 16:08 | PN ---
PROGRESS NOTE DATE OF SERVICE: 12/19/2017. This 52-year-old woman who was admitted with right perihilar mass is receiving radiation therapy. No chest pain. No palpitations. No fever. PHYSICAL EXAM: Alert and oriented x3. Pulse 95, blood pressure 160/90, respiration 18, temperature 97.8, pulse ox 94% on room air. HEENT: Conjunctivae normal. Oral mucosa moist. NECK: No jugular venous distention. No carotid bruit. No lymph node enlargement. CARDIOVASCULAR: S1, S2 muffled. RESPIRATORY: Breath sounds diminished in the bases. No rhonchi, no crackles. ABDOMEN: Soft, nontender. No mass palpable. LEGS: No edema. NERVOUS SYSTEM: No focal deficits. LABS: At this time shows WBC 20.9, platelets 76. ASSESSMENT: 1. Right perihilar mass with paratracheal lymphadenopathy, status post bronchoscopy, biopsy and small-cell lung cancer on radiation therapy newly started. 2. Pneumonia possibly post obstructive pneumonia on empiric antibiotics, possibly gram- negative. 3. Acute on chronic back pain, possible degenerative joint disease. 4. 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 5. Hypertension. 6. Hyponatremia. 7. History of nicotine dependence. 8. Obesity. 9. History of bipolar. 10.History of irritable bowel syndrome. RECOMMENDATIONS AND DISCUSSION: I recommend to continue current management and symptomatic treatment. Continue with the radiation therapy. Increase the dose of clonidine. Work closely with [employer]. The patient would like to stay at [facility] for now. Guarded prognosis. Further recommendations to follow. MMODL / IJN: [id number] /
--- NOTE | 2017-12-19 16:23 | P.PN ---
Subjective Progress Note Date: 12/19/17 Principal diagnosis: metastatic small cell lung cancer Pt seen in f/u today. She has started XRT to spine, thinks she might be a little more comfortable, she is SOB on exertion but this is stable and better then on admit, denies hemoptysis, nausea, abd pain, diarrhea or constipation, swelling or new pain. Objective - Vital Signs Vital signs: Vital Signs Temp 97.8 F 12/19/17 14:54 Pulse 95 12/19/17 14:54 Resp 18 12/19/17 14:54 BP 164/90 12/19/17 14:54 Pulse Ox 95 12/19/17 14:54 Intake & Output 12/18/17 12/19/17 12/19/17 18:59 06:59 18:59 Intake Total 100 720 Balance 100 720 Intake: Intake, IV Titration 100 Amount Doxycycline 100 mg In 100 Sodium Chloride 0.9% 100 ml @ 66.67 mls/hr IVPB Q12HR [facility] Rx#:[id number] Oral 720 Other: Voiding Method Toilet Toilet Toilet # Voids 1 - Constitutional General appearance: Present: average body habitus, cooperative, no acute distress - EENT Eyes: Present: anicteric sclerae ENT: Present: hearing grossly normal, normal oropharynx - Respiratory Respiratory: bilateral: diminished - Cardiovascular Heart sounds: normal: S1, S2 - Peripheral edema leg Peripheral Edema: bilateral: None - Gastrointestinal General gastrointestinal: Present: normal bowel sounds, soft - Integumentary Integumentary: Present: normal, normal turgor - Neurologic Neurologic: Present: CNII-XII intact - Musculoskeletal Musculoskeletal: Present: strength equal bilaterally - Psychiatric Psychiatric: Present: A&O x's 3, appropriate affect, intact judgment & insight - Labs CBC & Chem 7: 12/19/17 09:07 12/18/17 07:08 Labs: Abnormal Lab Results - Last 24 Hours (Table) 12/19/17 Range/Units 09:07 WBC 20.9 H (3.8-10.6) k/uL Plt Count 76 L (150-450) k/uL Microbiology - Last 24 Hours (Table) 12/09/17 13:10 Fungal Culture - Preliminary Bronchoalviolar Lavage - Right Assessment and Plan (1) Small cell lung cancer, right middle lobe Narrative/Plan: New diagnosis, metastatic disease. Baseline imaging will be completed. Reviewed negative CSF results XRT to painful/symptomatic vertebral mets to be completed before beginning treatment Current Visit: Yes Status: Acute Priority: High Code(s): C34.2 - MALIGNANT NEOPLASM OF MIDDLE LOBE, BRONCHUS OR LUNG SNOMED Code(s): 301796755 (2) Small cell lung cancer, right lower lobe Current Visit: Yes Status: Acute Priority: High Code(s): C34.31 - MALIGNANT NEOPLASM OF LOWER LOBE, RIGHT BRONCHUS OR LUNG SNOMED Code(s): 571435672 (3) SVC syndrome Narrative/Plan: SOB is stable, neck fullness stable. Current Visit: Yes Status: Acute Priority: High Code(s): I87.1 - COMPRESSION OF VEIN SNOMED Code(s): 33569898 (4) Neutrophilic leukocytosis Narrative/Plan: Multifactorial including pneumonia and steroids. No acute intervention or changes to plan of care Current Visit: Yes Status: Acute Priority: Low Code(s): D72.9 - DISORDER OF WHITE BLOOD CELLS, UNSPECIFIED SNOMED Code(s): 070514490 (5) Thrombocytopenia Narrative/Plan: Coags and fibrinogen checked, do not suspect DIC. Cont to monitor for now. Current Visit: Yes Status: Acute Priority: Medium Code(s): D69.6 - THROMBOCYTOPENIA, UNSPECIFIED SNOMED Code(s): 325854023 Plan: Dr. Vergara did discuss case with Rad/Onc. Dr. Garcia about plan for duration of radiation and beginning chemo. Pain management regimen seems to be adequate at this time. Cont XRT. TSLO brace being ordered, pt encouraged to wear. Dr. Rodriguez has seen pt, recommendations noted, pt will be referred as appropriate.
[2017-12-19] MEDS: IOPAMIDOL-300 CONTRAST 30 ML VIAL (ORAL USE) PO PRN ×2 (18:49→20:08)
[2017-12-19] MEDS: LORazepam 1 MG TAB PO PRN (19:31)
[2017-12-19] MEDS ORDERED: MORPHINE SULFATE 4 MG/ML SYRINGE IVP PRN (20:54)
[2017-12-19] MEDS ORDERED: MORPHINE SULFATE 2 MG/ML SYRINGE IVP PRN (20:54)
--- NOTE | 2017-12-19 21:14 | CT ---
EXAMINATION TYPE: CT abdomen pelvis w con DATE OF EXAM: 12/19/2017 COMPARISON: None HISTORY: Initial staging for lung CA CT DLP: 1532.1 mGycm Automated exposure control for dose reduction was used. TECHNIQUE: Helical acquisition of images was performed from the lung bases through the pelvis. CONTRAST: Performed with Oral Contrast and with IV Contrast, patient injected with 100 mL of Isovue 300. FINDINGS: The images through the lower chest show 4 cm lobulated mass at the inferior right pulmonary hilum. Th ere is some patchy infiltrate in the right lower lobe and some subpleural consolidation that measures 3 cm. There is interstitial infiltrate in the left lower lobe. There is diffuse heterogeneous density in the liver consistent with multiple liver masses that measur e up to 4 cm. Liver measures 27 cm in length. Gallbladder appears normal. Spleen appears normal. Ther e is no pancreatic mass. There is no adrenal mass. Kidneys show satisfactory contrast opacification. There is no hydronephrosi s. There is no retroperitoneal adenopathy. There is no ascites. Bladder distends smoothly. I see no i ntestinal wall thickening. There are no dilated loops. There are clips apparently from hysterectomy. Appendix is not seen. I see no bony destructive process. Lumbar spine is intact. IMPRESSION: ENLARGED LIVER WITH NUMEROUS LIVER MASSES CONSISTENT WITH EXTENSIVE METASTATIC DISEASE. RIGHT LOWER L OBE MASS WITH PERIPHERAL RIGHT LOWER LOBE INFILTRATE.
[2017-12-19] MEDS: POLYETHYLENE GLYCOL 3350 17 GM POWD.PACK PO SCH (21:39)
[2017-12-19] MEDS: cloNIDine HCL 0.2 MG TAB PO SCH (21:41)
[2017-12-20] MEDS: IBUPROFEN 600 MG TAB PO SCH ×2 (00:12→07:56)
[2017-12-20] MEDS ORDERED: ONDANSETRON 4 MG/2 ML VIAL IVP PRN (01:27)
[2017-12-20 07:37] VITALS: BP 181/92; TEMP 97.6
[2017-12-20] MEDS: cefTRIAXone IN SWFI 1,000 MG/10 ML SYRINGE IVP SCH (07:54)
[2017-12-20] MEDS: DOXYCYCLINE 100 MG in SODIUM CHLORIDE 0.9% 100 ML IVPB SCH (07:55)
[2017-12-20] MEDS: HEPARIN SODIUM,PORCINE 5,000 UNIT/ML 1 ML VIAL SQ SCH (07:55)
[2017-12-20] MEDS: ARIPiprazole 2 MG TAB PO SCH (07:56)
[2017-12-20] MEDS: PANTOPRAZOLE 40 MG TABLET PO SCH (07:56)
[2017-12-20] MEDS: predniSONE 10 MG TAB PO SCH (07:57)
[2017-12-20] MEDS: DOCUSATE 100 MG CAP PO SCH (07:57)
[2017-12-20] MEDS: amLODIPine 10 MG TAB PO SCH (07:57)
[2017-12-20] MEDS: METOPROLOL TARTRATE 25 MG TAB PO SCH (07:57)
[2017-12-20] MEDS: cloNIDine HCL 0.2 MG TAB PO SCH (07:58)
[2017-12-20] MEDS: oxyCODONE-APAP 10-325MG 1 EACH TAB PO PRN (08:14)
[2017-12-20 08:36] LABS: HGB 12.2 gm/dL (11.4-16.0); MCH 32.3 pg (25.0-35.0); MCHC 33.9 g/dL (31.0-37.0); MCV 95.5 fL (80.0-100.0); RBC 3.77 m/uL (3.80-5.40); WBC 14.2 k/uL (3.8-10.6)
[2017-12-20 08:37] LABS: Platelet Count 52 k/uL (150-450)
[2017-12-20] MEDS: IPRATROPIUM-ALBUTEROL 3 ML NEB INHALATION PRN ×2 (09:38→15:49)
[2017-12-20] MEDS: HYDROmorphone 1 MG/ML 1 ML SYRINGE IVP PRN (13:19)
[2017-12-20 15:50] VITALS: RESP 16
[2017-12-20 15:57] VITALS: PULSE 90
--- NOTE | 2017-12-20 18:30 | P.PN ---
Subjective Progress Note Date: 12/20/17 Principal diagnosis: metastatic small cell lung cancer Pt seen today in follow up, she is getting moderate relief from malignancy pain in her back, she is using pain meds and continues on XRT. She is ready to get going with treatment, no other acute physical c/o today. She is ambulatory, eating and drinking in adequate amounts. Objective - Vital Signs Vital signs: Vital Signs Temp 97.6 F 12/20/17 07:30 Pulse 90 12/20/17 15:57 Resp 16 12/20/17 15:57 BP 181/92 12/20/17 07:30 Pulse Ox 90 L 12/20/17 07:30 Intake & Output 12/19/17 12/20/17 12/20/17 18:59 06:59 18:59 Intake Total 3120 2420 720 Balance 3120 2420 720 Intake: Intake, IV Titration 100 Amount Doxycycline 100 mg In 100 Sodium Chloride 0.9% 100 ml @ 66.67 mls/hr IVPB Q12HR TAMIKA Rx#:[id number] Oral 3120 2320 720 Other: Voiding Method Toilet Toilet Toilet # Voids 5 2 2 - Constitutional General appearance: Present: average body habitus, cooperative, no acute distress - Respiratory Respiratory: bilateral: wheezing (few scattered ) - Cardiovascular Heart sounds: normal: S1, S2 - Gastrointestinal General gastrointestinal: Present: normal bowel sounds - Neurologic Neurologic: Present: CNII-XII intact - Musculoskeletal Musculoskeletal: Present: strength equal bilaterally - Psychiatric Psychiatric: Present: A&O x's 3, appropriate affect, intact judgment & insight - Labs CBC & Chem 7: 12/20/17 07:34 12/18/17 07:08 Labs: Abnormal Lab Results - Last 24 Hours (Table) 12/20/17 Range/Units 07:34 WBC 14.2 H (3.8-10.6) k/uL RBC 3.77 L (3.80-5.40) m/uL Plt Count 52 L (150-450) k/uL - Imaging and Cardiology CT scan - abdomen: report reviewed CT scan - pelvis: report reviewed Assessment and Plan (1) Acute neoplasm-related pain Narrative/Plan: Pt has started radiation to bone mets in the spine, pain medication regimen is adequate at this time. Current Visit: Yes Status: Acute Priority: High Code(s): G89.3 - NEOPLASM RELATED PAIN (ACUTE) (CHRONIC) SNOMED Code(s): 659165629 (2) Small cell lung cancer, right middle lobe Narrative/Plan: Reviewed CT results with pt, there is metastatic disease in the liver, pt already being treated for bone mets. We discussed chemo and that it will start once radiation is completed. Pt is agreeable to begin CARMEN Current Visit: Yes Status: Acute Priority: High Code(s): C34.2 - MALIGNANT NEOPLASM OF MIDDLE LOBE, BRONCHUS OR LUNG SNOMED Code(s): 653237151 (3) Small cell lung cancer, right lower lobe Current Visit: Yes Status: Acute Priority: High Code(s): C34.31 - MALIGNANT NEOPLASM OF LOWER LOBE, RIGHT BRONCHUS OR LUNG SNOMED Code(s): 842640058 (4) SVC syndrome Narrative/Plan: stable, better on steroids Current Visit: Yes Status: Acute Priority: High Code(s): I87.1 - COMPRESSION OF VEIN SNOMED Code(s): 54749685 (5) Neutrophilic leukocytosis Narrative/Plan: stable, no intervention Current Visit: Yes Status: Acute Priority: Low Code(s): D72.9 - DISORDER OF WHITE BLOOD CELLS, UNSPECIFIED SNOMED Code(s): 694697507 (6) Thrombocytopenia Narrative/Plan: stable, no intervention Current Visit: Yes Status: Acute Priority: Medium Code(s): D69.6 - THROMBOCYTOPENIA, UNSPECIFIED SNOMED Code(s): 621745897 Plan: Case discussed with Attending Pt ok from Hem/Onc to be discharged once cleared by Attending and Consulting Physicians Rx provided, MAPS run Pt will be contacted with start date of chemo
--- NOTE | 2017-12-20 20:17 | DS ---
DISCHARGE SUMMARY FINAL DIAGNOSES: 1. Right perihilar mass with paratracheal lymphadenopathy status of bronchoscopy biopsy, small-cell lung cancer on radiation therapy newly started. 2. Multiple liver metastases. 3. Pneumonia possibly postobstructive pneumonia on the empiric antibiotics, possibly gram-negative. 4. Acute on chronic back pain, possible degenerative joint disease. 5. 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 6. Hypertension. 7. Hyponatremia. 8. History nicotine dependence. 9. Obesity. 10.History of bipolar. 11.History of irritable bowel syndrome. DISCHARGE DISPOSITION: The patient will be discharged in stable condition with guarded prognosis. Total time taken is 35 minutes. HISTORY OF PRESENT ILLNESS: This 52-year-old woman with a past medical history of multiple medical problems was admitted with pneumonia and cancer as mentioned earlier. The patient underwent bronchoscopy and biopsy. Subsequently patient started on radiation therapy by Dr. Garcia. Multiple consultants saw the patient. A lumbar puncture was also done to evaluate for the dural enhancement. The final reports are pending at this time. The final reports of the CSF cytology showed no evidence of any malignancy. The patient improved significantly. The patient will be discharged in stable condition with guarded prognosis. On exam, vitals are stable. Cardiovascular: S1, S2. Respiratory: A few scattered rhonchi. Abdomen: Soft. Nervous System: No focal deficits. DISCHARGE ADVICE: 1. Diet is cardiac. 2. Activities limited until followup. 3. Follow up with Dr. Remy Spence in 2-3 days. 4. Follow up with Dr. Vergara and consultations as recommended. MEDICATIONS: 1. Melatonin 10 mg q.h.s. 2. Norvasc 10 mg b.i.d. 3. Abilify 2 mg p.o. daily. 4. Ceftin 500 mg p.o. b.i.d. for 5 days. 5. Catapres 0.2 p.o. t.i.d. 6. Colace 100 mg p.o. b.i.d. 7. Fentanyl patch 25 mcg q.72 hours. 8. DuoNeb q.i.d. and p.r.n. 9. Ativan 1 tablets p.o. q.8h p.r.n. 10.Lopressor 25 mg p.o. b.i.d. 11.Oxycodone 1 tablet p.o. q.4h p.r.n. 12.Protonix 40 mg b.i.d. 13.MiraLAX 17 g daily. 14.Prednisone taper that will be 30 mg for 10 days, 20 mg for 10 days, 10 mg for 10 days and 5 mg for 10 days. 15.Senna 8.5 mg p.o. b.i.d. MMGERI / CHLOE: [id number] /
== END 2017-12-20 18:45 | disposition home or self-care (01) | DRG 180 ==
LOC: 5ONC 23:50
PROVIDERS: ADMIT Internal Medicine; ATTEND Internal Medicine
PROC: 0BD68ZX Extraction of Right Lower Lobe Bronchus, Via Natural or Artificial Opening Endoscopic, Diagnostic (ICD-10-PCS; principal; 2017-12-09 12:00)
PROC: 0B958ZX Drainage of Right Middle Lobe Bronchus, Via Natural or Artificial Opening Endoscopic, Diagnostic (ICD-10-PCS; principal; 2017-12-09 12:00)
PROC: 0BD58ZX Extraction of Right Middle Lobe Bronchus, Via Natural or Artificial Opening Endoscopic, Diagnostic (ICD-10-PCS; principal; 2017-12-09 12:00)
PROC: DP0C2ZZ Beam Radiation of Other Bone using Photons >10 MeV (ICD-10-PCS; 2017-12-15)
PROC: DP0C2ZZ Beam Radiation of Other Bone using Photons >10 MeV (ICD-10-PCS; 2017-12-16)
PROC: DP0C2ZZ Beam Radiation of Other Bone using Photons >10 MeV (ICD-10-PCS; 2017-12-19)
DX: C34.01 Malignant neoplasm of right main bronchus (principal); J15.6 Pneumonia due to other Gram-negative bacteria; C78.7 Secondary malignant neoplasm of liver and intrahepatic bile duct; C79.51 Secondary malignant neoplasm of bone; E87.1 Hypo-osmolality and hyponatremia; I87.1 Compression of vein; J44.0 Chronic obstructive pulmonary disease with (acute) lower respiratory infection; D69.6 Thrombocytopenia, unspecified; E66.9 Obesity, unspecified; Z68.31 Body mass index [BMI] 31.0-31.9, adult; F31.9 Bipolar disorder, unspecified; F41.9 Anxiety disorder, unspecified; G89.3 Neoplasm related pain (acute) (chronic); K21.9 Gastro-esophageal reflux disease without esophagitis; M48.061 Spinal stenosis, lumbar region without neurogenic claudication; M51.16 Intervertebral disc disorders with radiculopathy, lumbar region; M51.17 Intervertebral disc disorders with radiculopathy, lumbosacral region; Z79.899 Other long term (current) drug therapy; Z82.49 Family history of ischemic heart disease and other diseases of the circulatory system; Z87.01 Personal history of pneumonia (recurrent); Z87.891 Personal history of nicotine dependence; Z90.710 Acquired absence of both cervix and uterus; D16.4 Benign neoplasm of bones of skull and face; D72.828 Other elevated white blood cell count
CPT/HCPCS: 31623; 31624; 31625; 31629; 62270; 70553; 71045; 72158; 72197; 74177; 77295; 77300; 77332; 77334; 77387; 77412; 80048; 81025; 82945; 85025; 85027; 85384; 85610; 85730; 87070; 87102; 87116; 87205; 87206; 88104; 88108; 88173; 88305; 88341; 88342; 89050; 94640; 94760